=== PATIENT | female | born 1950 | race Two or more races ===

== ENCOUNTER → 2017-03-17 | Outpatient (CLI) | payer MEDICARE ==
--- NOTE | 2017-03-17 15:29 | XR ---
EXAMINATION TYPE: XR chest 2V DATE OF EXAM: 03/17/2017 COMPARISON: 05/26/2011 HISTORY: 66-year-old female cough and congestion TECHNIQUE: Frontal and lateral views FINDINGS: The cardiomediastinal silhouette, aorta, and pulmonary vasculature are within normal limits. Mild int erstitial prominence of the chronic appearance. No consolidation or pleural effusion. IMPRESSION: Chronic appearing changes without acute cardiopulmonary process.
== END | disposition home or self-care (01) ==
LOC: RADXRYALE 14:21
PROVIDERS: ATTEND Internal Medicine
DX: R05 Cough (principal); E11.9 Type 2 diabetes mellitus without complications
CPT/HCPCS: 71046

== ENCOUNTER 2017-06-09 23:08 | Observation (INO) | payer MEDICARE, OTHER ==
--- NOTE | 2017-06-09 23:22 | ED ---
General Adult HPI - General Chief complaint: Chest Pain Stated complaint: chest pain,dizziness Time Seen by Provider: 06/09/17 23:16 Source: patient, RN notes reviewed, old records reviewed Mode of arrival: wheelchair Limitations: language barrier, physical limitation - History of Present Illness Initial comments: This is a 66-year-old female to the ER for evaluation. Patient poor strain history obtained from family. Patient has chest pain, patient has history of diabetes of Hycotuss show. No prior history of chest pain no fevers or cough or congestion no travel history. No modifying factors for symptoms - Related Data Home Medications Medication Instructions Recorded Confirmed Atorvastatin [Lipitor] 20 mg PO DAILY 09/28/14 06/10/17 Primidone [Mysoline] 50 mg PO Q8HR 09/28/14 06/10/17 Cetirizine HCl [Zyrtec] 10 mg PO DAILY 06/10/17 06/10/17 DULoxetine HCL [Cymbalta] 60 mg PO DAILY 06/10/17 06/10/17 Insulin Glargine,Hum.rec.anlog 25 units SQ DAILY 06/10/17 06/10/17 [Lantus Solostar] Insulin Glargine,Hum.rec.anlog 35 unit SQ HS 06/10/17 06/10/17 [Lantus Solostar] Latanoprost Ophth [Xalatan 0.005%] 1 drops BOTH EYES HS 06/10/17 06/10/17 Losartan/Hydrochlorothiazide 1 tab PO DAILY 06/10/17 06/10/17 [Losartan-Hctz 100-12.5 mg Tab] Omeprazole [PriLOSEC] 20 mg PO DAILY 06/10/17 06/10/17 Oxybutynin Chloride [Ditropan] 5 mg PO BID 06/10/17 06/10/17 Pioglitazone HCl [Actos] 30 mg PO DAILY 06/10/17 06/10/17 Allergies Allergy/AdvReac Type Severity Reaction Status Date / Time No Known Allergies Allergy Verified 06/10/17 03:15 Review of Systems ROS Statement: Those systems with pertinent positive or pertinent negative responses have been documented in the HPI. ROS Other: All systems not noted in ROS Statement are negative. Past Medical History Past Medical History: Diabetes Mellitus, GERD/Reflux, Hyperlipidemia History of Any Multi-Drug Resistant Organisms: None Reported Past Surgical History: Cholecystectomy, Tubal Ligation Additional Past Surgical History / Comment(s): perf bowel with colostomy, colostomy reversed Past Psychological History: Depression Smoking Status: Current every day smoker Past Alcohol Use History: None Reported Past Drug Use History: None Reported General Exam Limitations: language barrier Course Vital Signs 06/09/17 06/09/17 06/10/17 23:09 23:11 00:11 Temperature 98.3 F 98.4 F Pulse Rate 62 68 88 Respiratory 20 18 20 Rate Blood Pressure 189/77 166/77 184/84 O2 Sat by Pulse 99 99 98 Oximetry 06/10/17 01:00 Temperature Pulse Rate 88 Respiratory 20 Rate Blood Pressure 172/82 O2 Sat by Pulse 98 Oximetry EKG Findings - EKG Comments: EKG Findings:: EKG shows sinus bradycardia rate of 56, UT 140, QRS 72, QTc 434 Medical Decision Making - Medical Decision Making 58 female the ER for evaluation multiple pain, headache nausea vomiting chest pain abdominal pain. Complex medical history with poor history secondary to leg which barrier. Patient has multiple imaging done as well as lab tests are negative, will admit for chest pain observation secondary to history of high blood pressure high cholesterol - Lab Data Result diagrams: 06/09/17 23:38 06/10/17 00:00 Lab Results 06/09/17 06/09/17 06/09/17 Range/Units 23:23 23:38 23:38 WBC 8.5 (3.8-10.6) k/uL RBC 4.71 (3.80-5.40) m/uL Hgb 13.5 (11.4-16.0) gm/dL Hct 40.7 (34.0-46.0) % MCV 86.4 (80.0-100.0) fL MCH 28.6 (25.0-35.0) pg MCHC 33.0 (31.0-37.0) g/dL RDW 13.7 (11.5-15.5) % Plt Count 234 (150-450) k/uL Neutrophils % 65 % Lymphocytes % 26 % Monocytes % 5 % Eosinophils % 3 % Basophils % 0 % Neutrophils # 5.5 (1.3-7.7) k/uL Lymphocytes # 2.2 (1.0-4.8) k/uL Monocytes # 0.4 (0-1.0) k/uL Eosinophils # 0.2 (0-0.7) k/uL Basophils # 0.0 (0-0.2) k/uL PT (9.0-12.0) sec INR (<1.2) APTT (22.0-30.0) sec D-Dimer (<0.60) mg/L FEU Sodium (137-145) mmol/L Potassium (3.5-5.1) mmol/L Chloride (98-107) mmol/L Carbon Dioxide (22-30) mmol/L Anion Gap mmol/L BUN (7-17) mg/dL Creatinine (0.52-1.04) mg/dL Est GFR (CKD-EPI)AfAm (>60 ml/min/1.73 sqM) Est GFR (CKD-EPI)NonAf (>60 ml/min/1.73 sqM) Glucose (74-99) mg/dL POC Glucose (mg/dL) 98 (75-99) mg/dL POC Glu Hotel Attendant ID Maxime Joy Calcium (8.4-10.2) mg/dL Magnesium (1.6-2.3) mg/dL Total Bilirubin (0.2-1.3) mg/dL AST (14-36) U/L ALT (9-52) U/L Alkaline Phosphatase (38-126) U/L Total Creatine Kinase 152 H (30-135) U/L CK-MB (CK-2) 0.8 (0.0-2.4) ng/mL CK-MB (CK-2) Rel Index 0.5 Troponin I <0.012 (0.000-0.034) ng/mL Total Protein (6.3-8.2) g/dL Albumin (3.5-5.0) g/dL Lipase (23-300) U/L 06/09/17 06/10/17 Range/Units 23:38 00:00 WBC (3.8-10.6) k/uL RBC (3.80-5.40) m/uL Hgb (11.4-16.0) gm/dL Hct (34.0-46.0) % MCV (80.0-100.0) fL MCH (25.0-35.0) pg MCHC (31.0-37.0) g/dL RDW (11.5-15.5) % Plt Count (150-450) k/uL Neutrophils % % Lymphocytes % % Monocytes % % Eosinophils % % Basophils % % Neutrophils # (1.3-7.7) k/uL Lymphocytes # (1.0-4.8) k/uL Monocytes # (0-1.0) k/uL Eosinophils # (0-0.7) k/uL Basophils # (0-0.2) k/uL PT 9.8 (9.0-12.0) sec INR 1.0 (<1.2) APTT 23.0 (22.0-30.0) sec D-Dimer 0.79 H (<0.60) mg/L FEU Sodium 144 (137-145) mmol/L Potassium 3.6 (3.5-5.1) mmol/L Chloride 102 (98-107) mmol/L Carbon Dioxide 29 (22-30) mmol/L Anion Gap 13 mmol/L BUN 15 (7-17) mg/dL Creatinine 0.90 (0.52-1.04) mg/dL Est GFR (CKD-EPI)AfAm 76 (>60 ml/min/1.73 sqM) Est GFR (CKD-EPI)NonAf 66 (>60 ml/min/1.73 sqM) Glucose 86 (74-99) mg/dL POC Glucose (mg/dL) (75-99) mg/dL POC Glu Hotel Attendant ID Calcium 9.3 (8.4-10.2) mg/dL Magnesium 1.5 L (1.6-2.3) mg/dL Total Bilirubin 0.3 (0.2-1.3) mg/dL AST 16 (14-36) U/L ALT 19 (9-52) U/L Alkaline Phosphatase 109 (38-126) U/L Total Creatine Kinase (30-135) U/L CK-MB (CK-2) (0.0-2.4) ng/mL CK-MB (CK-2) Rel Index Troponin I (0.000-0.034) ng/mL Total Protein 6.5 (6.3-8.2) g/dL Albumin 3.9 (3.5-5.0) g/dL Lipase 51 (23-300) U/L - Radiology Data Radiology results: report reviewed (CT brain negative CT chest and pelvis negative for acute disease), image reviewed Disposition Clinical Impression: Chest pain Disposition: ADMITTED IP TO THIS HOSP Condition: Undetermined Is patient prescribed a controlled substance at d/c from ED?: No
[2017-06-09 23:26] LABS: Glucose,Whole Blood 98 mg/dL (75-99)
[2017-06-09] MEDS ORDERED: RX INFO: IV CONTRAST WAS GIVEN 1 EACH MISC MISCELLANE PRN (23:29)
[2017-06-09 23:48] LABS: Basophils % (A) 0 %; Eosinophils # (A) 0.2 k/uL (0-0.7); Eosinophils % (A) 3 %; HCT 40.7 % (34.0-46.0); HGB 13.5 gm/dL (11.4-16.0); Lymphocytes # (A) 2.2 k/uL (1.0-4.8); Lymphocytes % (A) 26 %; MCH 28.6 pg (25.0-35.0); MCV 86.4 fL (80.0-100.0); Mean Platelet Volume 7.7; Monocytes # (A) 0.4 k/uL (0-1.0); Monocytes % (A) 5 %; Neutrophils # (A) 5.5 k/uL (1.3-7.7); Neutrophils % (A) 65 %; Platelet Count 234 k/uL (150-450); RBC 4.71 m/uL (3.80-5.40); RDW 13.7 % (11.5-15.5); WBC 8.5 k/uL (3.8-10.6)
[2017-06-09 23:54] LABS: Albumin 3.9 g/dL (3.5-5.0); Calcium 9.3 mg/dL (8.4-10.2); Magnesium 1.5 mg/dL (1.6-2.3); Potassium 3.6 mmol/L (3.5-5.1); Total Bilirubin 0.3 mg/dL (0.2-1.3); Total Protein 6.5 g/dL (6.3-8.2)
[2017-06-10 00:02] LABS: Prothrombin Time 9.8 sec (9.0-12.0)
[2017-06-10 00:10] LABS: Creatine Kinase 152 U/L (30-135)
[2017-06-10] MEDS ORDERED: MORPHINE SULFATE 4 MG/0.8 ML SYRINGE (INJ) IVP STA (00:18)
[2017-06-10] MEDS ORDERED: ONDANSETRON 4 MG/2 ML VIAL IVP STA (00:18)
[2017-06-10] MEDS ORDERED: PANTOPRAZOLE 40 MG/10 ML VIAL IVP STA (00:18)
[2017-06-10] MEDS ORDERED: MAGNESIUM SULFATE-D5W PMX 1 GM in DEXTROSE/WATER 1 100ML.BAG IVPB ONE (00:19)
[2017-06-10] MEDS ORDERED: MAGNESIUM OXIDE 400 MG TAB PO STA (00:19)
[2017-06-10 00:22] LABS: Creatine Kinase MB 0.8 ng/mL (0.0-2.4); Troponin I <0.012 ng/mL (0.000-0.034)
[2017-06-10 00:31] LABS: D-Dimer 0.79 mg/L FEU (<0.60)
--- NOTE | 2017-06-10 00:41 | CT ---
EXAMINATION TYPE: CT brain wo con DATE OF EXAM: 06/10/2017 COMPARISON: NONE HISTORY: No prior, language barrier, HANNON for 1 week, disoriented and unsteady gait per family, hidstor y of mini strokes and hypertension CT DLP: 981.70 mGycm Automated exposure control for dose reduction was used. FINDINGS: Ventricles and sulci appear normal for age.. There is no mass effect nor midline shift. There is no s ign of intracranial hemorrhage. There is some mucosal thickening in the paranasal sinuses. The calvar ium is intact. IMPRESSION: THERE IS MILD ATROPHY APPROPRIATE FOR AGE. NO ACUTE INTRACRANIAL ABNORMALITY. PANSINUSITIS.
[2017-06-10] MEDS ORDERED: MORPHINE SULFATE 4 MG/0.8 ML SYRINGE (INJ) IV PRN (00:43)
[2017-06-10] MEDS ORDERED: ASPIRIN 81 MG PO STA (00:43)
[2017-06-10] MEDS ORDERED: NITROGLYCERIN SL TABS 0.4 MG TAB SUBLINGUAL PRN (00:43)
--- NOTE | 2017-06-10 00:57 | CT ---
EXAMINATION TYPE: CT abdomen pelvis w con DATE OF EXAM: 06/10/2017 COMPARISON: 05/28/2011 HISTORY: Prior on Electro-LuminX, language barrier, wincing during exam, history of cholecystectomy CT DLP: 2362.80 mGycm Automated exposure control for dose reduction was used. TECHNIQUE: Helical acquisition of images was performed from the lung bases through the pelvis. CONTRAST: Performed without Oral Contrast and with IV Contrast, patient injected with 100 mL of Isovue 370. FINDINGS: The lung bases are clear of consolidation. There is no pleural effusion. There is no pericardial effu christa. Heart appears enlarged. Liver spleen pancreas appear normal. Gallbladder is absent. Bile ducts are not dilated. There is no adrenal mass. Kidneys show satisfactory contrast opacification. There is no hydronephrosi s. Ureters are not dilated. There is no retroperitoneal adenopathy. There is no ascites. Bladder dist ends smoothly. Uterus is anteverted. Lumbar spine is intact. There are surgical clips in the rectosig moid junction. There are also surgical clips in the anterior pelvis related to intestinal surgery. Appendix appears normal. I see no intestinal wall thickening. There is a ventral hernia that contains omental fat in the left mid abdomen. There is some atrophy of the anterior abdominal wall muscles. IMPRESSION: PREVIOUS COLORECTAL SURGERY. VENTRAL HERNIA CONTAINS OMENTAL FAT ON THE LEFT SIDE AND IS APPARENTLY P REVIOUS SITE OF COLOSTOMY. NO SIGN OF ACUTE ABDOMEN AND PELVIS. NO ADVERSE CHANGE COMPARED TO OLD EXA M.
--- NOTE | 2017-06-10 01:01 | CT ---
EXAMINATION TYPE: CT angio chest DATE OF EXAM: 06/10/2017 12:43 AM COMPARISON: NONE HISTORY: No prior, language barrier, HANNON for 1 week, disoriented and unsteady gait, dizziness, and hyp ertension, R/O PE CT DLP: 2362.80 mGycm Automated exposure control for dose reduction was used. CONTRAST: CTA scan of the thorax is performed with IV Contrast, patient injected with 100 mL of Isovue 370, pul monary embolism protocol. . FINDINGS: There are 3-D post processed images. The lungs are clear of consolidation. There is no pleural effusion. There is no pericardial effusion. Heart appears enlarged. I see no filling defects in the pulmonary arteries. There are no hilar yakelin s. There is a 2 cm anterior mediastinal lymph node. There are smaller right paratracheal lymph nodes. There is spurring in the thoracic spine. I see no bony destructive process. There is mild pleural thickening at both lung apices. There is no evidence of a pulmonary mass... IMPRESSION: NO EVIDENCE OF PULMONARY EMBOLISM. MILD MEDIASTINAL ADENOPATHY OF UNCERTAIN SIGNIFICANCE. MINIMAL AP ICAL PLEURAL THICKENING..
[2017-06-10 06:16] LABS: Creatine Kinase 157 U/L (30-135)
[2017-06-10 06:29] LABS: Creatine Kinase MB 0.7 ng/mL (0.0-2.4); Troponin I <0.012 ng/mL (0.000-0.034)
[2017-06-10 07:19] LABS: Glucose,Whole Blood 70 mg/dL (75-99)
[2017-06-10] MEDS ORDERED: DOBUTamine DRIP for NUC MED 250 MG in DEXTROSE/WATER 1 250ML.BAG IV ONE (08:15)
[2017-06-10] MEDS ORDERED: ATORVASTATIN 80 MG TAB PO SCH (09:00)
[2017-06-10] MEDS ORDERED: MORPHINE ORAL SOLN 10 MG/5 ML CUP PO PRN (10:13)
--- NOTE | 2017-06-10 10:54 | ECHOS ---
STRESS ECHOCARDIOGRAM DATE OF SERVICE: 06/10/2017 This is a dobutamine stress echo. INDICATIONS: Chest pain. MEDICATIONS: BASELINE HEART RATE: 56 BASELINE BLOOD PRESSURE: 143/75 MAXIMUM HEART RATE: 138 MAXIMUM BLOOD PRESSURE: 169/51 85% MPHR: 129 100% MPHR: 152 METS: MAXIMUM STAGE REACHED: TOTAL EXERCISE TIME: CLINICAL INFORMATION: Baseline EKG shows sinus rhythm, normal axis, normal intervals. The patient was given intravenous dobutamine over a period of 5-1/2 minutes, achieving 90% of predicted maximal heart rate without chest pain or diagnostic ST-segment depression. Baseline echo shows normal left ventricular size, wall motion and systolic function. Post dobutamine infusion, there is normal hyperdynamic response of all segments of myocardium noted. CONCLUSION: Negative dobutamine echo. MMODL / IJN: [id number] /
--- NOTE | 2017-06-10 11:18 | CONS ---
CONSULTATION CHIEF COMPLAINT: Chest pain. Genet is a 66-year-old [place]-speaking lady who presented to the hospital primarily complaining of headache and dizziness and along the way complained of chest pain. I communicated with her through a granddaughter who was at bedside who translated the information back and forth. She has vague precordial chest pain that is sharp, mild intensity, reproducible, unrelated to exertion and associated with diaphoresis. Since being admitted, she is doing well and is free of symptoms. EKG does not reveal ischemic changes. Cardiac enzymes have been negative. Patient has coronary risk factors in the form of hypertension, diabetes, dyslipidemia. Given the multiple coronary risk factors and the unexplained chest discomfort, which is atypical, I advised her to undergo a dobutamine echo and if necessary, I will perform cardiac catheterization. PAST MEDICAL HISTORY: Significant for yju-ocfqzqv-whgryudge diabetes, hypertension, dyslipidemia. CURRENT MEDICATIONS: Include Actos, Ditropan, Prilosec, losartan, insulin, Cymbalta, Zyrtec and Lipitor. She is also on Mysoline. ALLERGIES: No known drug allergies. FAMILY HISTORY: Negative for premature coronary artery disease. SOCIAL HISTORY: Significant for smoking. There is no history of EtOH abuse or drug abuse. REVIEW OF SYSTEMS: HEENT is unremarkable. CARDIAC: As described above. RESPIRATORY: Negative. GI: Negative. GENITOURINARY: Negative. ALLERGY/IMMUNOLOGY: Negative. SKIN: Negative. MUSCULOSKELETAL: Significant for arthritis. PSYCHOSOCIAL: Negative. ENDOCRINE: Negative. DERM: Negative. ONCOLOGICAL: Negative. Rest of the system review is not relevant. PHYSICAL EXAM: Comfortable at rest. Vital signs are stable. There is no jugular venous distention. Carotid upstroke is normal. There is no bruit. Chest exam reveals good air entry bilaterally. Heart exam reveals first and second heart sounds. No gallop. No murmur. No rub. Abdomen is soft, nontender. Exam of extremities did not reveal edema. Peripheral pulses are felt. FRAUD INVESTIGATOR exam did not reveal focal neurological deficits. EKG does not reveal ischemic changes. Troponins are normal. D-dimer is elevated. CT scan of the chest is negative for pulmonary embolism. ASSESSMENT: 1. Precordial chest pain, atypical, probably noncardiac in origin. 2. Hypertension. 3. Diabetes. 4. Dyslipidemia. PLAN: Will obtain a stress test on her. If this is abnormal, I will consider further workup. If not, she can be discharged home and continue with risk factor modification and medical therapy. MMODL / IJN: [id number] /
--- NOTE | 2017-06-10 11:21 | ECHOF ---
Referral Reason:cp MEASUREMENTS -------- HEIGHT: 154.9 cm WEIGHT: 86.2 kg BP: 141/63 RVIDd: 2.0 cm (< 3.3) IVSd: 1.2 cm (0.6 - 1.1) LVIDd: 4.2 cm (3.9 - 5.3) LVPWd: 1.2 cm (0.6 - 1.1) IVSs: 1.3 cm LVIDs: 3.2 cm LVPWs: 1.5 cm LA Diam: 3.1 cm (2.7 - 3.8) Ao Diam: 2.8 cm (2.0 - 3.7) AV Cusp: 1.9 cm (1.5 - 2.6) MV EXCURSION: 14.100 mm (> 18.000) MV EF SLOPE: 33 mm/s (70 - 150) EPSS: 0.8 cm MV E Armani: 0.78 m/s MV DecT: 285 ms MV A Armani: 0.86 m/s MV E/A Ratio: 0.91 FINDINGS -------- Sinus rhythm. This was a technically good study. The left ventricular size is normal. Left ventricular wall thickness is normal. Overall left vent ricular systolic function is normal with, an EF between 55 - 60 %. The right ventricle is normal in size. Normal LA size by volume 22+/-6 ml/m2. The right atrium is normal in size. The aortic valve is trileaflet and appears structurally normal. The mitral valve is normal. The tricuspid valve appears structurally normal. There is no pulmonic regurgitation present. The aortic root size is normal. IVC Not well visulized. There is no pericardial effusion. CONCLUSIONS -------- 1. Sinus rhythm. 2. This was a technically good study. 3. The left ventricular size is normal. 4. Left ventricular wall thickness is normal. 5. Overall left ventricular systolic function is normal with, an EF between 55 - 60 %. 6. The right ventricle is normal in size. 7. Normal LA size by volume 22+/-6 ml/m2. 8. The right atrium is normal in size. 9. The aortic valve is trileaflet and appears structurally normal. 10. The mitral valve is normal. 11. The tricuspid valve appears structurally normal. 12. There is no pulmonic regurgitation present. 13. The aortic root size is normal. 14. IVC Not well visulized. 15. There is no pericardial effusion. WIRING TECHNICIAN: Macey Anna RDCS
[2017-06-10] MEDS: ACETAMINOPHEN TAB 325 MG TAB PO PRN (11:22)
[2017-06-10 12:24] LABS: Glucose,Whole Blood 125 mg/dL (75-99)
[2017-06-10] MEDS: METOPROLOL TARTRATE 25 MG TAB PO SCH ×3 (12:26→22:09)
[2017-06-10] MEDS: LOSARTAN 50 MG TAB PO SCH (12:30)
[2017-06-10] MEDS: PIOGLITAZONE 30 MG TAB PO SCH (12:30)
[2017-06-10] MEDS: OXYBUTYNIN CHLORIDE 5 MG TAB PO SCH ×2 (12:30→22:03)
[2017-06-10] MEDS: PANTOPRAZOLE 40 MG TABLET PO SCH (12:30)
[2017-06-10] MEDS: DULoxetine HCL 60 MG CAPSULE.DR PO SCH (12:31)
[2017-06-10] MEDS: LORATADINE 10 MG TAB PO SCH (12:31)
[2017-06-10] MEDS: HYDROCHLOROTHIAZIDE 12.5 MG CAP PO SCH (12:31)
[2017-06-10] MEDS: INSULIN DETEMIR 100 UNIT/ML 10 ML VIAL SQ SCH (12:31)
[2017-06-10 12:38] LABS: Creatine Kinase MB 0.6 ng/mL (0.0-2.4); Troponin I 0.026 ng/mL (0.000-0.034)
[2017-06-10 13:53] LABS: Hemoglobin A1C 6.3 % (4.0-6.0)
--- NOTE | 2017-06-10 15:43 | P.HPIM ---
History of Present Illness This is a pleasant 66 years old lady does not speak [place] [employer] taken from the patient with the help of senior physician of her daughter Barbara up on patient's request she has past medical history of DM, GERD, hyperlipidemia, Parkinson's tremors, depression, Patient presents with 1 week history of frontal headache, nonspecific inequality known radiation improvement and it was severity from 10-2/10, associated with blurred vision, and balance problem, however patient denies any specific weakness in her lips or abnormal sensation, no difficulty talking or swallowing Past Medical History Past Medical History: Diabetes Mellitus, GERD/Reflux, Hyperlipidemia Additional Past Medical History / Comment(s): parkinsons tremors History of Any Multi-Drug Resistant Organisms: None Reported Past Surgical History: Cholecystectomy, Tubal Ligation Additional Past Surgical History / Comment(s): perf bowel with colostomy, colostomy reversed Additional Past Anesthesia/Blood Transfusion Reaction / Comment(s): has a hard time waking up from surgery Past Psychological History: Depression Smoking Status: Current every day smoker Past Alcohol Use History: None Reported Past Drug Use History: None Reported Medications and Allergies Home Medications Medication Instructions Recorded Confirmed Type Atorvastatin [Lipitor] 20 mg PO DAILY 09/28/14 06/10/17 History Primidone [Mysoline] 50 mg PO Q8HR 09/28/14 06/10/17 History Cetirizine HCl [Zyrtec] 10 mg PO DAILY 06/10/17 06/10/17 History DULoxetine HCL [Cymbalta] 60 mg PO DAILY 06/10/17 06/10/17 History Insulin Glargine,Hum.rec.anlog 25 units SQ DAILY 06/10/17 06/10/17 History [Lantus Solostar] Insulin Glargine,Hum.rec.anlog 35 unit SQ HS 06/10/17 06/10/17 History [Lantus Solostar] Latanoprost Ophth [Xalatan 0.005%] 1 drops BOTH EYES HS 06/10/17 06/10/17 History Losartan/Hydrochlorothiazide 1 tab PO DAILY 06/10/17 06/10/17 History [Losartan-Hctz 100-12.5 mg Tab] Omeprazole [PriLOSEC] 20 mg PO DAILY 06/10/17 06/10/17 History Oxybutynin Chloride [Ditropan] 5 mg PO BID 06/10/17 06/10/17 History Pioglitazone HCl [Actos] 30 mg PO DAILY 06/10/17 06/10/17 History Allergies Allergy/AdvReac Type Severity Reaction Status Date / Time No Known Allergies Allergy Verified 06/10/17 03:15 Physical Exam Vitals: Vital Signs Temp Pulse Pulse Resp BP BP Pulse Ox 06/10/17 12:00 18 06/10/17 11:15 98.1 F 63 18 148/67 99 06/10/17 08:00 59 L 18 06/10/17 07:56 97.6 F 59 L 18 141/63 99 06/10/17 03:32 16 06/10/17 02:12 97.5 F L 52 L 16 169/69 100 06/10/17 01:00 88 20 172/82 98 06/10/17 00:11 98.4 F 88 20 184/84 98 06/09/17 23:11 68 18 166/77 99 06/09/17 23:09 98.3 F 62 20 189/77 99 Intake and Output 06/10/17 06/10/17 06/10/17 06:59 14:59 22:59 Intake Total 425 240 Balance 425 240 Intake: IV 425 0.9@75 425 Oral 240 Other: Voiding Method Toilet Toilet Weight 86.183 kg Constitutional: No acute distress, conversant, pleasant Eyes: Anicteric sclerae, moist conjunctiva, no lid-lag PERRLA ENMT: NC/AT Oropharynx clear, no erythema, exudates Neck: Supple, FROM, no masses, or JVD No carotid bruits No thyromegaly Lungs: Clear to auscultation Clear to percussion Normal respiratory effort, no accessory muscle use Cardiovascular: Heart regular in rate and rhythm, No murmurs, gallops, or rubs No peripheral edema Abdominal: Soft Nontender, no guarding, rebound or rigidity Abdomen moving with respiration Normoactive bowel sounds No hepatomegaly, No splenomegaly No palpable mass No abdominal wall hernia noted Skin: Normal temperature, tone, texture, turgor No induration No subcutaneous nodules No rash, lesions No ulcers Extremities: No digital cyanosis No clubbing Pedal pulses intact and symmetrical Radial pulses intact and symmetrical Normal gait and station No calf tenderness Psychiatric: Alert and oriented to person, place and time Appropriate affect Intact judgement Neuro: Muscles Strength 5/5 in all 4 extremities Sensation to light touch grossly present throughout Cranial nerves II-XII grossly intact No focal sensory deficits Results CBC & Chem 7: 06/09/17 23:38 06/10/17 00:00 Labs: Abnormal Lab Results - Last 24 Hours (Table) 06/09/17 06/09/17 06/10/17 Range/Units 23:38 23:38 00:00 D-Dimer 0.79 H (<0.60) mg/L FEU POC Glucose (mg/dL) (75-99) mg/dL Hemoglobin A1c (4.0-6.0) % Magnesium 1.5 L (1.6-2.3) mg/dL Total Creatine Kinase 152 H (30-135) U/L 06/10/17 06/10/17 06/10/17 Range/Units 05:33 05:33 07:13 D-Dimer (<0.60) mg/L FEU POC Glucose (mg/dL) 70 L (75-99) mg/dL Hemoglobin A1c 6.3 H (4.0-6.0) % Magnesium (1.6-2.3) mg/dL Total Creatine Kinase 157 H (30-135) U/L 06/10/17 Range/Units 12:21 D-Dimer (<0.60) mg/L FEU POC Glucose (mg/dL) 125 H (75-99) mg/dL Hemoglobin A1c (4.0-6.0) % Magnesium (1.6-2.3) mg/dL Total Creatine Kinase (30-135) U/L Thrombosis Risk Factor Assmnt - Choose All That Apply Any of the Below Risk Factors Present?: Yes Each Factor Represents 1 point: Hx of IBD, Obesity (BMI >25), Swollen legs ( current), Varicose veins Other Risk Factors: Yes Each Risk Factor Represents 2 Points: Age 61-74 years Other congenital or acquired thrombophilia - If yes, enter type in comment: No Thrombosis Risk Factor Assessment Total Risk Factor Score: 6 Thrombosis Risk Factor Assessment Level: High Risk Assessment and Plan Assessment: -Frontal headache associated with blurred vision and dizziness -Chest pain significantly improved Plan: Patient underwent stress CTPA and cardiac stress test which were both negative or PE and cardiac disease, patient has been evaluated by cardiology team, their input is appreciated, and they cleared patient for discharge from their perspective However patient is still complaining from headache, blurred patients and balance problem, however there is no specific weakness is appreciated in the examination, her CT of the head was negative, we will ask for neurology evaluation plus physical therapy
[2017-06-10 17:13] LABS: Glucose,Whole Blood 117 mg/dL (75-99)
[2017-06-10] MEDS ORDERED: ONDANSETRON 4 MG/2 ML VIAL IVP PRN (17:17)
[2017-06-10] MEDS ORDERED: ONDANSETRON 4 MG/2 ML VIAL ONE (17:23)
[2017-06-10] MEDS: PRIMIDONE 50 MG TAB PO SCH ×2 (17:30→23:54)
[2017-06-10] MEDS ORDERED: MECLIZINE 12.5 MG TAB PO PRN (18:02)
--- NOTE | 2017-06-10 18:04 | P.CNNES ---
History of Present Illness Consult date: 06/10/17 History of Present Illness: The patient is a 66-year-old woman who presents with headache and chest pain since Wednesday. Patient apparently complained to her daughter whom she lives with of some chest pain along the left side of her chest and also of a headache around the frontal head region. She came into the hospital with that complaint. She is on a resident of [place] and has been visiting her daughter for the last few months. She has a history of headaches off and on usually 2-3 a month. Recently her blood pressure is been elevated. Her dizziness she describes as a vertiginous sensation. Patient also gives a history of Parkinson 's disease and has been stable in that regard. She does give a history of sinus stroke problems in the past and ALLERGIES and she was taking medication for that optimally year ago and then discontinued. The patient is diabetic and has heart disease and hyperlipidemia Parkinson's disease. The patient does not speaking wish and her daughters interpreting. The patient denied any focal weakness or double vision. She has had some blurred vision. Review of Systems Constitutional: Reports as per HPI Cardiovascular: Denies chest pain, Denies shortness of breath Respiratory: Denies cough Neurological: Denies numbness, Denies weakness Psychiatric: Reports as per HPI Past Medical History Past Medical History: Diabetes Mellitus, GERD/Reflux, Hyperlipidemia Additional Past Medical History / Comment(s): parkinsons tremors History of Any Multi-Drug Resistant Organisms: None Reported Past Surgical History: Cholecystectomy, Tubal Ligation Additional Past Surgical History / Comment(s): perf bowel with colostomy, colostomy reversed Additional Past Anesthesia/Blood Transfusion Reaction / Comment(s): has a hard time waking up from surgery Past Psychological History: Depression Smoking Status: Current every day smoker Past Alcohol Use History: None Reported Past Drug Use History: None Reported Medications and Allergies Home Medications Medication Instructions Recorded Confirmed Type Atorvastatin [Lipitor] 20 mg PO DAILY 09/28/14 06/10/17 History Primidone [Mysoline] 50 mg PO Q8HR 09/28/14 06/10/17 History Cetirizine HCl [Zyrtec] 10 mg PO DAILY 06/10/17 06/10/17 History DULoxetine HCL [Cymbalta] 60 mg PO DAILY 06/10/17 06/10/17 History Insulin Glargine,Hum.rec.anlog 25 units SQ DAILY 06/10/17 06/10/17 History [Lantus Solostar] Insulin Glargine,Hum.rec.anlog 35 unit SQ HS 06/10/17 06/10/17 History [Lantus Solostar] Latanoprost Ophth [Xalatan 0.005%] 1 drops BOTH EYES HS 06/10/17 06/10/17 History Losartan/Hydrochlorothiazide 1 tab PO DAILY 06/10/17 06/10/17 History [Losartan-Hctz 100-12.5 mg Tab] Omeprazole [PriLOSEC] 20 mg PO DAILY 06/10/17 06/10/17 History Oxybutynin Chloride [Ditropan] 5 mg PO BID 06/10/17 06/10/17 History Pioglitazone HCl [Actos] 30 mg PO DAILY 06/10/17 06/10/17 History Allergies Allergy/AdvReac Type Severity Reaction Status Date / Time No Known Allergies Allergy Verified 06/10/17 03:15 Physical Examination - Vital Signs Vital Signs: Vital Signs Temp Pulse Pulse Resp BP BP Pulse Ox 06/10/17 16:00 97.5 F L 73 18 188/61 95 06/10/17 12:00 18 06/10/17 11:15 98.1 F 63 18 148/67 99 06/10/17 08:00 59 L 18 06/10/17 07:56 97.6 F 59 L 18 141/63 99 06/10/17 03:32 16 06/10/17 02:12 97.5 F L 52 L 16 169/69 100 06/10/17 01:00 88 20 172/82 98 06/10/17 00:11 98.4 F 88 20 184/84 98 06/09/17 23:11 68 18 166/77 99 06/09/17 23:09 98.3 F 62 20 189/77 99 Intake and Output 06/10/17 06/10/17 06/10/17 06:59 14:59 22:59 Intake Total 425 440 Balance 425 440 Intake: IV 425 0.9@75 425 Oral 240 Other 200 Other: Voiding Method Toilet Toilet # Emeses 1 Weight 86.183 kg - Constitutional General appearance: average body habitus - EENT EENT: PERRL, vision intact - Respiratory Respiratory: lungs clear - Cardiovascular Cardiovascular: regular rate, normal S1 - Integumentary Integumentary: normal - Neurologic Neurologic examination mental status the patient is awake and alert and oriented. She speaks Kosovan. Her daughter is interpreting. Cranial nerves II through XII are grossly intact next Motor examination revealed no focal weakness Coordination finger to nose was intact next Sensory examination intact to light touch Deep tendon reflexes were 1 and symmetric X Gait was not tested Results - Laboratory Findings CBC and BMP: 06/09/17 23:38 06/10/17 00:00 Abnormal Lab Findings: Abnormal Labs 06/09/17 06/09/17 06/10/17 23:38 23:38 00:00 D-Dimer 0.79 H POC Glucose (mg/dL) Hemoglobin A1c Magnesium 1.5 L Total Creatine Kinase 152 H 06/10/17 06/10/17 06/10/17 05:33 05:33 07:13 D-Dimer POC Glucose (mg/dL) 70 L Hemoglobin A1c 6.3 H Magnesium Total Creatine Kinase 157 H 06/10/17 06/10/17 12:21 17:08 D-Dimer POC Glucose (mg/dL) 125 H 117 H Hemoglobin A1c Magnesium Total Creatine Kinase Assessment and Plan (1) Frontal headache Current Visit: Yes Status: Acute SNOMED Code(s): 159894630 (2) Pansinusitis Current Visit: Yes Status: Acute SNOMED Code(s): 712224042 (3) Vertigo Current Visit: Yes Status: Acute SNOMED Code(s): 881179653 (4) Chest pain Current Visit: Yes Status: Acute SNOMED Code(s): 87905928 Plan: The patient is a 66-year-old woman who presents with headache in the frontal head region. She had a CAT scan of the brain which showed pansinusitis. She does have hypertension which has been poorly controlled recently. Her headache is likely secondary to her sinusitis. CT of the brain was otherwise unremarkable except for mild atrophy. She has no focal neurologic deficits on examination. Her vertigo may be related to the underlying inflammation she is having with her sinusitis. Recommend meclizine 12.5 mg twice a day a day. Also we'll check carotid ultrasound. If dizziness does not improve recommend ENT evaluation.
--- NOTE | 2017-06-10 19:47 | US ---
EXAMINATION TYPE: US carotid duplex BILAT DATE OF EXAM: 06/10/2017 COMPARISON: NONE CLINICAL HISTORY: Vertigo. Vertigo EXAM MEASUREMENTS: RIGHT: Peak Systolic Velocity (PSV) cm/sec ----- Right CCA: 42.0 ----- Right ICA: 63.8 ----- Right ECA: 84.2 ICA/CCA ratio: 1.5 RIGHT: End Diastole cm/sec ----- Right CCA: 7.1 ----- Right ICA: 14.4 ----- Right ECA: 8.6 LEFT: Peak Systolic Velocity (PSV) cm/sec ----- Left CCA: 55.4 ----- Left ICA: 75.2 ----- Left ECA: 70.0 ICA/CCA ratio: 1.4 LEFT: End Diastole cm/sec ----- Left CCA: 13.1 ----- Left ICA: 15.7 ----- Left ECA: 7.8 VERTEBRALS (direction of flow): Right Vertebral: Antegrade Left Vertebral: Antegrade Rhythm: Normal Bilateral vessels dive deep. No significant stenosis seen IMPRESSION: There is antegrade flow in the vertebral arteries. The images and measurements suggest l ess than 25% stenosis in both internal carotid arteries. Criteria for Assigning % of Stenosis / Diameter reduction (Estimation based on the indirect measurements of the internal carotid artery velocities (ICA PSV). 1. Normal (no stenosis)=ICA PSV < 125 cm/s: ratio < 2.0: ICA EDV<40 cm/s. 2. Less than 50% stenosis=ICA PSV < 125 cm/s: ratio < 2.0: ICA EDV<40 cm/s. 3. 50 to 69% stenosis=ICA PSV of 125 to 230 cm/s: ration 2.0 ? 4.0: ICA EDV 40-100 cm/s. 4. Greater than 70% stenosis to near occlusion= ICA PSV > 230 cm/s: ratio > 4.0: ICA EDV > 100 cm/s. 5. Near occlusion= ICA PSV velocities may be low or undetectable: variable ratio and ICA EDV. 6. Total occlusion=unable to detect flow.
[2017-06-10 20:57] LABS: Glucose,Whole Blood 232 mg/dL (75-99)
[2017-06-10] MEDS ORDERED: INSULIN DETEMIR 100 UNIT/ML 10 ML VIAL SQ SCH (21:00)
[2017-06-10] MEDS ORDERED: LATANOPROST 0.005% OPHTH DROPS 2.5 ML BTL BOTH EYES SCH (21:00)
[2017-06-11 07:34] LABS: Basophils % (A) 0 %; Eosinophils # (A) 0.2 k/uL (0-0.7); Eosinophils % (A) 3 %; HCT 40.2 % (34.0-46.0); HGB 12.9 gm/dL (11.4-16.0); Lymphocytes # (A) 1.6 k/uL (1.0-4.8); Lymphocytes % (A) 21 %; MCH 28.1 pg (25.0-35.0); MCHC 32.1 g/dL (31.0-37.0); MCV 87.6 fL (80.0-100.0); Mean Platelet Volume 7.6; Monocytes # (A) 0.4 k/uL (0-1.0); Monocytes % (A) 5 %; Neutrophils # (A) 5.2 k/uL (1.3-7.7); Neutrophils % (A) 70 %; Platelet Count 234 k/uL (150-450); RBC 4.59 m/uL (3.80-5.40); RDW 13.7 % (11.5-15.5); WBC 7.4 k/uL (3.8-10.6)
[2017-06-11 07:51] LABS: Calcium 8.8 mg/dL (8.4-10.2); Magnesium 1.7 mg/dL (1.6-2.3); Potassium 4.2 mmol/L (3.5-5.1)
[2017-06-11 07:51] LABS: Glucose,Whole Blood 62 mg/dL (75-99)
[2017-06-11 07:51] LABS: Glucose,Whole Blood 75 mg/dL (75-99)
[2017-06-11 08:03] VITALS: RESP 18
[2017-06-11] MEDS: PANTOPRAZOLE 40 MG TABLET PO SCH (08:59)
[2017-06-11] MEDS: OXYBUTYNIN CHLORIDE 5 MG TAB PO SCH (08:59)
[2017-06-11] MEDS: PIOGLITAZONE 30 MG TAB PO SCH (08:59)
[2017-06-11] MEDS: LOSARTAN 50 MG TAB PO SCH (08:59)
[2017-06-11] MEDS: LORATADINE 10 MG TAB PO SCH (08:59)
[2017-06-11] MEDS: HYDROCHLOROTHIAZIDE 12.5 MG CAP PO SCH (08:59)
[2017-06-11] MEDS: DULoxetine HCL 60 MG CAPSULE.DR PO SCH (08:59)
[2017-06-11] MEDS: PRIMIDONE 50 MG TAB PO SCH ×2 (08:59→18:32)
[2017-06-11] MEDS ORDERED: ATORVASTATIN 20 MG TAB PO SCH (09:00)
[2017-06-11] MEDS ORDERED: ASPIRIN 81 MG PO SCH (09:00)
[2017-06-11] MEDS ORDERED: ASPIRIN 325 MG TAB PO SCH (09:00)
[2017-06-11] MEDS ORDERED: FLUTICASONE 50MCG/SPRAY NASAL 16GM EA NOSTRIL SCH (11:45)
[2017-06-11 12:18] LABS: Glucose,Whole Blood 121 mg/dL (75-99)
[2017-06-11] MEDS: INSULIN DETEMIR 100 UNIT/ML 10 ML VIAL SQ SCH (12:40)
[2017-06-11] MEDS: ACETAMINOPHEN TAB 325 MG TAB PO PRN (15:05)
[2017-06-11 17:37] LABS: Glucose,Whole Blood 159 mg/dL (75-99)
[2017-06-11 19:58] VITALS: BP 129/59; PULSE 62; TEMP 98.2
--- NOTE | 2017-06-11 23:24 | P.DS ---
Providers Date of admission: 06/10/17 00:43 Attending physician: Eitan Walls Consults: 06/10/17 00:43 Consult Physician Urgent Consulting Provider: Valeria Urrutia Consult Reason/Comments: cp Do you want consulting provider notified?: Yes 06/10/17 15:50 Consult Physician Routine Consulting Provider: Loco Morelos Consult Reason/Comments: Dizziness, Blurred Vision Do you want consulting provider notified?: Yes Primary care physician: Yvrose Blount Patient is seen and examined at bedside Patient has no new complaints No chest pain/dyspnea, no change in urine or bowel habits, no fever Patient says her frontal headache is significantly improved and now she just feels like heaviness or pressure No other neurological complaints Patient has been evaluated by neurologist recommended CD which shows less than 25% obstruction in the carotid arteries, and mostly it is from the frontal sinusitis, and they recommended ENT Discussed with the patient she does not want to wait until get ENT consult in- house and she preferred to be referred as an outpatient clinic Hospital Course: This is a pleasant 66 years old lady does not speak [place] information taken from the patient with the help of credit correspondence clerk of her daughter upon patient's request she has past medical history of DM, GERD, hyperlipidemia , Parkinson's tremors, depression Patient presents with 1 week history of frontal headache, and chest pain , pt has been evaluated by cardiology and neurology teams, patient had negative dobutamine echo on 06/10/2017 and she was cleared by cardiology team for discharge, her cp is resolved on the day of discharge Patient has been evaluated by neurologist recommended CD which shows less than 25% obstruction in the carotid arteries, and mostly it is from the frontal sinusitis, and they recommended ENT if no improvement , pt is informed with family and they agree Patient says her frontal headache is significantly improved after she was started on flonase, No other neurological complaints pt also CTPA of the thorax for elevated D-Dimer, which was negative for PE, there was some pleural thickening, mild. with [address], pt and family at bed side are informed , i recommended to hold dc till arrange for pulmonary referral , pt and family declined to wait for next day and stated they wanted to be discharged today , as she was planning to go to [place] next day for one week and comes back. I informed the pt and her family at bed side ( 2 daughters and one son in law) that i would not discharge pt if she is not going to see catering administrative assistant in the clinic and each member of the family as well as the pt herself confirmed to me she is going to follow my recommendation and see catering administrative assistant in 1-2 week, risks including but not limited to cancer are explained for the pt and family and they verbalized understanding and acceptance. referral information is provided for the pt for pulmonary and pcp and ENT and cardilogy and they agree with these recommendation, family looks reliable and involved seriously with the care of the pt since day one and they were providing support for the pt pt is counseled to quit smoking and she verbalized understanding and acceptance pt is stared on asa for prophylaxis , giving her risk factor of DM , HTN life styles, risks of bleeding are explained for the pt including the risk of brain bleed and organ dysfunction and and she agrees pt is found stable and can be discharged home but she needs f/u and she agrees (please see the full radiology reports for CT of abdomen/Pelvis, CT of the thorax , and CT of the brain from , echo and carotid doppler from 06/10/2017 ) Constitutional: No acute distress, conversant, pleasant Eyes: Anicteric sclerae, moist conjunctiva, no lid-lag PERRLA ENMT: NC/AT Oropharynx clear, no erythema, exudates Neck: Supple, FROM, no masses, or JVD No carotid bruits No thyromegaly Lungs: Clear to auscultation Clear to percussion Normal respiratory effort, no accessory muscle use Cardiovascular: Heart regular in rate and rhythm, No murmurs,gallops, or rubs No peripheral edema Abdominal: Soft Nontender, no guarding, rebound or rigidity Abdomen moving with respiration Normoactive bowel sounds No hepatomegaly, No splenomegaly No palpable mass No abdominal wall hernia noted Skin: Normal temperature, tone, texture, turgor No induration No subcutaneous nodules No rash, lesions No ulcers Extremities: No digital cyanosis No clubbing Pedal pulses intact and symmetrical Radial pulses intact and symmetrical Normal gait and station No calf tenderness Psychiatric: Alert and oriented to person, place and time Appropriate affect Intact judgement Neuro: Muscles Strength 5/5 in all 4 extremities Sensation to light touch grossly present throughout Cranial nerves II-XII grossly intact No focal sensory deficits Patient Condition at Discharge: Good Plan - Discharge Summary Discharge Rx Participant: No New Discharge Prescriptions: New Aspirin 81 mg PO DAILY #30 chew Fluticasone Nasal [place] [Flonase Nasal [place]] 2 spray EA NOSTRIL DAILY #1 spr Meclizine [Antivert] 12.5 mg PO BID PRN #60 tab PRN Reason: Vertigo Continue Primidone [Mysoline] 50 mg PO Q8HR Atorvastatin [Lipitor] 20 mg PO DAILY Omeprazole [PriLOSEC] 20 mg PO DAILY Latanoprost Ophth [Xalatan 0.005%] 1 drops BOTH EYES HS Oxybutynin Chloride [Ditropan] 5 mg PO BID Losartan/Hydrochlorothiazide [Losartan-Hctz 100-12.5 mg Tab] 1 tab PO DAILY Pioglitazone HCl [Actos] 30 mg PO DAILY Insulin Glargine,Hum.rec.anlog [Lantus Solostar] 35 unit SQ HS Insulin Glargine,Hum.rec.anlog [Lantus Solostar] 25 units SQ DAILY Cetirizine HCl [Zyrtec] 10 mg PO DAILY DULoxetine HCL [Cymbalta] 60 mg PO DAILY Discharge Medication List Atorvastatin [Lipitor] 20 mg PO DAILY 09/28/14 [History] Primidone [Mysoline] 50 mg PO Q8HR 09/28/14 [History] Cetirizine HCl [Zyrtec] 10 mg PO DAILY 06/10/17 [History] DULoxetine HCL [Cymbalta] 60 mg PO DAILY 06/10/17 [History] Insulin Glargine,Hum.rec.anlog [Lantus Solostar] 25 units SQ DAILY 06/10/17 [ History] Insulin Glargine,Hum.rec.anlog [Lantus Solostar] 35 unit SQ HS 06/10/17 [History ] Latanoprost Ophth [Xalatan 0.005%] 1 drops BOTH EYES HS 06/10/17 [History] Losartan/Hydrochlorothiazide [Losartan-Hctz 100-12.5 mg Tab] 1 tab PO DAILY [History] Omeprazole [PriLOSEC] 20 mg PO DAILY 06/10/17 [History] Oxybutynin Chloride [Ditropan] 5 mg PO BID 06/10/17 [History] Pioglitazone HCl [Actos] 30 mg PO DAILY 06/10/17 [History] Aspirin 81 mg PO DAILY #30 chew 06/11/17 [Rx] Fluticasone Nasal [place] [Flonase Nasal [place]] 2 spray EA NOSTRIL DAILY #1 spr [Rx] Meclizine [Antivert] 12.5 mg PO BID PRN #60 tab 06/11/17 [Rx] Follow up Appointment(s)/Referral(s): Cesia Lawrence MD [STAFF PHYSICIAN] - 2 Weeks (abnormal CT scan of your chest done on 06/09/2014 ( pleural thickening and large LN)) Carl Velazquez DO [Doctor of Osteopathic Medicine] - 2 Weeks (if you still feel dizzy , and/or sinusitis complaints ) Yvrose Blount MD [Primary Care Provider] - 1 Week (Appointment made for WednesdayJune 15 @ 12:15pm.) Fabio Piedra MD [STAFF PHYSICIAN] - 1 Week (Appointment made for July 06 at 4:30pm.) Patient Instructions/Handouts: Chest Pain (ED) Activity/Diet/Wound Care/Special Instructions: cardiac diet activity as tolerated Discharge Disposition: HOME SELF-CARE
== END 2017-06-11 20:00 | disposition home or self-care (01) ==
LOC: EC 23:08 → 3OBS 06-10 00:43
PROVIDERS: ADMIT Hospitalist; ATTEND Hospitalist
DX: R07.89 Other chest pain (principal); J32.4 Chronic pansinusitis; H53.8 Other visual disturbances; R61 Generalized hyperhidrosis; I10 Essential (primary) hypertension; R79.89 Other specified abnormal findings of blood chemistry; K21.9 Gastro-esophageal reflux disease without esophagitis; E78.5 Hyperlipidemia, unspecified; I65.23 Occlusion and stenosis of bilateral carotid arteries; G20 Parkinson's disease; E11.9 Type 2 diabetes mellitus without complications; F32.9 Major depressive disorder, single episode, unspecified; K58.9 Irritable bowel syndrome, unspecified; I83.90 Asymptomatic varicose veins of unspecified lower extremity; R91.8 Other nonspecific abnormal finding of lung field; F17.200 Nicotine dependence, unspecified, uncomplicated; E66.9 Obesity, unspecified; Z68.35 Body mass index [BMI] 35.0-35.9, adult; Z90.49 Acquired absence of other specified parts of digestive tract; Z79.4 Long term (current) use of insulin; Z79.899 Other long term (current) drug therapy
CPT/HCPCS: 96375 ×4; 96365 ×2; 99285 ×2; 93005 ×2; 96376; 36415 ×2; 93306; 93351; 97162; 85379; 80061; 80053; 80048; 82550; 82553; 83690; 83735 ×2; 84484; 85025 ×2; 85610; 85730; 83036; 93880; 70450; 71275; 74177; G0378 ×2; J2405; J3475; C9113; J1250; Q9967; J2270

== ENCOUNTER 2023-12-19 16:27 | Observation (INO) | payer MEDICARE, OTHER ==
--- NOTE | 2023-12-19 17:02 | ED ---
Chest Pain HPI - General Chief Complaint: Chest Pain Stated Complaint: Chest pain Time Seen by Provider: 12/19/23 16:32 Source: patient, EMS, RN notes reviewed, old records reviewed, Caregiver Mode of arrival: EMS Limitations: language barrier - History of Present Illness Initial Comments: This is a 73-year-old female to ER with chest pain difficult to control chest pain with nitro and pain medication prior to arrival by EMS. Patient has history of heart disease, left-sided chest pain chest pain to her back which is similar to prior heart event. Patient is having persistent chest pain here in the ER severe and is brought in by family who are very concerned for chest pain. Patient is under language barrier daughter provides history MD Complaint: chest pain -: hour(s) Pain Location: substernal, left chest Pain Radiation: back Severity: severe Severity scale (1-10): 8 Quality: sharp Consistency: constant Improves With: nothing Worsens With: nothing Anginal Symptoms: sense of impending doom Other Symptoms: palpitations Treatments Prior to Arrival: none - Related Data Home Medications Medication Instructions Recorded Confirmed Atorvastatin [Lipitor] 20 mg PO HS 09/28/14 12/19/23 DULoxetine HCL [Cymbalta] 60 mg PO DAILY 06/10/17 12/19/23 Latanoprost Ophth [Xalatan 0.005%] 1 drop BOTH EYES HS 06/10/17 12/19/23 Benzonatate [Tessalon Perle] 200 mg PO TID 12/19/23 12/19/23 Carbidopa-Levodopa ER 25-100Mg 1 tab PO HS 12/19/23 12/19/23 [Sinemet CR 25-100 mg] Ergocalciferol [Vitamin D2 (1250 1,250 mcg PO MO 12/19/23 12/19/23 Mcg = 96999 Iu)] Gabapentin [Neurontin] 100 mg PO BID 12/19/23 12/19/23 Insulin Degludec [Tresiba 50 units SQ HS 12/19/23 12/19/23 Flextouch U-200 Pen] Losartan [Cozaar] 25 mg PO DAILY 12/19/23 12/19/23 Pantoprazole [Protonix] 40 mg PO HS 12/19/23 12/19/23 Semaglutide [Ozempic] 0.25 mg SQ TH 12/19/23 12/19/23 Vibegron [Gemtesa] 75 mg PO DAILY 12/19/23 12/19/23 metFORMIN HCL [Glucophage] 500 mg PO BID 12/19/23 12/19/23 Previous Rx's Medication Instructions Recorded Dicyclomine [Bentyl] 10 mg PO QID PRN #30 capsule 12/21/23 Allergies Allergy/AdvReac Type Severity Reaction Status Date / Time No Known Allergies Allergy Verified 12/19/23 18:53 Review of Systems ROS Statement: Those systems with pertinent positive or pertinent negative responses have been documented in the HPI. ROS Other: All systems not noted in ROS Statement are negative. EKG Findings - EKG Comments: EKG Findings:: EKG sinus 67 NC 157 QRS 85 QTc 434 - EKG Results: EKG: interpreted by DEEPALI Past Medical History Past Medical History: Diabetes Mellitus, GERD/Reflux, Hyperlipidemia Additional Past Medical History / Comment(s): parkinsons tremors History of Any Multi-Drug Resistant Organisms: None Reported Past Surgical History: Cholecystectomy, Tubal Ligation Additional Past Surgical History / Comment(s): perf bowel with colostomy, colostomy reversed Additional Past Anesthesia/Blood Transfusion Reaction / Comment(s): has a hard time waking up from surgery Past Psychological History: Depression Past Alcohol Use History: None Reported Past Drug Use History: None Reported General Exam Limitations: language barrier General appearance: alert, in no apparent distress Head exam: Present: atraumatic, normocephalic, normal inspection Eye exam: Present: normal appearance, PERRL, EOMI. Absent: scleral icterus, conjunctival injection, periorbital swelling ENT exam: Present: normal exam, mucous membranes moist Neck exam: Present: normal inspection. Absent: tenderness, meningismus, lymp hadenopathy Respiratory exam: Present: normal lung sounds bilaterally. Absent: respiratory distress, wheezes, rales, rhonchi, stridor Cardiovascular Exam: Present: regular rate, normal rhythm, normal heart sounds. Absent: systolic murmur, diastolic murmur, rubs, gallop, clicks GI/Abdominal exam: Present: soft, normal bowel sounds. Absent: distended, tenderness, guarding, rebound, rigid Extremities exam: Present: normal inspection, full ROM, normal capillary refill. Absent: tenderness, pedal edema, joint swelling, calf tenderness Back exam: Present: normal inspection Neurological exam: Present: alert, oriented X3, CN II-XII intact Psychiatric exam: Present: normal affect, normal mood Skin exam: Present: warm, dry, intact, normal color. Absent: rash Course Vital Signs 12/19/23 12/19/23 12/19/23 16:32 17:03 18:06 Temperature 98.7 F Pulse Rate 57 L 64 58 L Respiratory 19 16 17 Rate Blood Pressure 157/74 142/70 178/88 O2 Sat by Pulse 97 98 98 Oximetry 12/19/23 12/19/23 18:50 19:08 Temperature 98.7 F 98 F Pulse Rate 62 59 L Respiratory 18 14 Rate Blood Pressure 153/74 92/63 O2 Sat by Pulse 96 96 Oximetry - Reevaluation(s) Reevaluation #1: 12/19/23 17:02 Medical records reviewed Reevaluation #2: 12/19/23 18:14 Patient still with chest pain here in the ER Reevaluation #3: 12/19/23 18:14 Patient informed of results questions answered Reevaluation #4: Was pt. sent in by a medical professional or institution (, PA, WANT AD SUPERVISOR, urgent care, hospital, or half-way...) When possible be specific @ -no Did you speak to anyone other than the patient for history (EMS, parent, family, police, friend...)? What history was obtained from this source @ -no Did you review nursing and triage notes (agree or disagree)? Why? @ -agree Are old charts reviewed (outside hosp., previous admission, EMS record, old EKG, old radiological studies, urgent care reports/EKG's, half-way records)? Report findings @ -yes Differential Diagnosis (chest pain, altered mental status, abdominal pain women, abdominal pain men, vaginal bleeding, weakness, fever, dyspnea, syncope, headache, dizziness, GI bleed, back pain, seizure, CVA, palpatations, mental health, musculoskeletal)? @ -prior EKG interpreted by me (3pts min.). @ -yes X-rays interpreted by me (1pt min.). @ -yes negative for acute disease CT interpreted by me (1pt min.). @ -no U/S interpreted by me (1pt. min.). @ -no What testing was considered but not performed or refused? (CT, X-rays, U/S, labs)? Why? @ -none What meds were considered but not given or refused? Why? @ -none Did you discuss the management of the patient with other professionals (professionals i.e. , PA, WANT AD SUPERVISOR, lab, RT, psych nurse, clinical social work aide, relocation services specialist, teacher, combat systems officer, senior case manager)? Give summary @ -no Was smoking cessation discussed for >3mins.? @ -no Was critical care preformed (if so, how long)? @ -yes31 Were there social determinants of health that impacted care today? How? (Homelessness, low income, unemployed, alcoholism, drug addiction, transportation, low edu. Level, literacy, decrease access to med. care, [facility], rehab)? @ -none Was there de-escalation of care discussed even if they declined (Discuss DNR or withdrawal of care, Hospice)? DNR status @ -no What co-morbidities impacted this encounter? (DM, HTN, Smoking, COPD, CAD, Cancer, CVA, ARF, Chemo, Hep., AIDS, mental health diagnosis, sleep apnea, morbid obesity)? @ -none Was patient admitted / discharged? Hospital course, mention meds given and route, prescriptions, significant lab abnormalities, going to OR and other pertinent info. @ - 73 female to the ER for evaluation of severe chest pain chest pain persistent here in the ER with history of CAD, patient will admit for chest pain observation Admitted Undiagnosed new problem with uncertain prognosis? @ -no Drug Therapy requiring intensive monitoring for toxicity (Heparin, Nitro, Insulin, Cardizem)? @ -no Were any procedures done? @ -no Diagnosis/symptom? @ -Chest pain ACS Acute, or Chronic, or Acute on Chronic? @ -Acute Uncomplicated (without systemic symptoms) or Complicated (systemic symptoms)? @ -Complicated Side effects of treatment? @ -no Exacerbation, Progression, or Severe Exacerbation? @ -exacerbation Poses a threat to life or bodily function? How? (Chest pain, [place], [place], pneumonia, PE, COPD, DKA, ARF, appy, cholecystitis, CVA, Diverticulitis, Homicidal, Suicidal, threat to staff... and all critical care pts) @ -yes with chest pain Reevaluation #5: Differential Chest Pain: Stable Angina, Unstable Angina, STEMI, NSTEMI Aortic Dissection, Pneumothorax, Musculoskeletal, Esophageal Spasm GERD, Cholecystitis, Pancreatitis, Zoster, this is not meant to be an all-inclusive list. - Consultations Consultation #1: Spoke with EM who agrees to admit this patient Chest Pain MDM - MDM 73 female to the ER for evaluation of severe chest pain chest pain persistent here in the ER with history of CAD, patient will admit for chest pain observation Critical Care Time Critical Care Time: Yes Total Critical Care Time: 31 Disposition Clinical Impression: Chest pain Disposition: ADMITTED IP TO THIS HOSP Condition: Fair Is patient prescribed a controlled substance at d/c from ED?: No Time of Disposition: 18:00
[2023-12-19] MEDS ORDERED: MORPHINE SULFATE 4 MG/ML SYRINGE IVP PRN (17:04)
[2023-12-19] MEDS: MORPHINE SULFATE 4 MG/ML SYRINGE IVP STA (17:09)
[2023-12-19 17:16] LABS: Basophils % (A) 0 %; Eosinophils # (A) 0.2 k/uL (0-0.7); Eosinophils % (A) 2 %; HCT 41.7 % (34.0-46.0); HGB 13.7 gm/dL (11.4-16.0); Hypochromasia Slight; Lymphocytes # (A) 1.8 k/uL (1.0-4.8); Lymphocytes % (A) 20 %; MCHC 32.9 g/dL (31.0-37.0); MCV 88.2 fL (80.0-100.0); Mean Platelet Volume 8.2; Monocytes # (A) 0.4 k/uL (0-1.0); Monocytes % (A) 4 %; Neutrophils # (A) 6.5 k/uL (1.3-7.7); Neutrophils % (A) 73 %; Platelet Count 205 k/uL (150-450); RBC 4.72 m/uL (3.80-5.40); RDW 13.9 % (11.5-15.5)
[2023-12-19 17:28] LABS: ALT 7 U/L (4-34); African American GFR (CKD) 89 (>60 ml/min/1.73 sqM); Anion Gap 3 mmol/L; Blood Urea Nitrogen 14 mg/dL (7-17); Calcium 8.7 mg/dL (8.4-10.2); Carbon Dioxide 27 mmol/L (22-30); Chloride 108 mmol/L (98-107); Glucose 120 mg/dL (74-99); Lipase 89 U/L (23-300); Non-African American GFR(CKD) 77 (>60 ml/min/1.73 sqM); Sodium 138 mmol/L (137-145); Total Bilirubin 0.7 mg/dL (0.2-1.3)
[2023-12-19 17:32] LABS: INR 0.9 (<1.2); Partial Thromboplastin Time 24.1 sec (22.0-30.0); Prothrombin Time 9.9 sec (10.0-12.5)
[2023-12-19 17:35] LABS: AST 22 U/L (14-36); NT-Pro-B-Type Natriuretic Pept 158 pg/mL; Total Protein 6.7 g/dL (6.3-8.2)
[2023-12-19 17:36] LABS: Alkaline Phosphatase 99 U/L (38-126); Magnesium 1.5 mg/dL (1.6-2.3)
--- NOTE | 2023-12-19 18:02 | XR ---
EXAMINATION TYPE: XR chest 2V DATE OF EXAM: 12/19/2023 COMPARISON: 03/17/2017 INDICATION: Chest pain, history of [place] a TIA TECHNIQUE: Frontal and lateral views of the chest are obtained. FINDINGS: The heart size is normal. The pulmonary vasculature is normal. The lungs are clear. IMPRESSION: 1. No acute pulmonary process. [facility], Workstation: [facility], 12/19/2023 6:00 PM
[2023-12-19] MEDS ORDERED: ONDANSETRON 4 MG/2 ML VIAL IVP PRN (18:13)
[2023-12-19] MEDS ORDERED: NALOXONE 0.4 MG/ML 1 ML VIAL IV PRN (18:13)
[2023-12-19 20:21] LABS: Glucose,Whole Blood 70 mg/dL (70-110)
[2023-12-19] MEDS: LATANOPROST 0.005% OPHTH DROPS 2.5 ML BTL BOTH EYES SCH (21:05)
[2023-12-19] MEDS: SODIUM CHLORIDE 0.9% 1,000 ML IV SCH (21:05)
[2023-12-19] MEDS: BENZONATATE 100 MG CAP PO SCH (21:06)
[2023-12-19] MEDS: metFORMIN 500 MG TAB PO SCH (21:06)
[2023-12-19] MEDS: GABAPENTIN 100 MG CAP PO SCH (21:06)
[2023-12-19] MEDS: ATORVASTATIN 20 MG TAB PO SCH (21:06)
[2023-12-19] MEDS: CARBIDOPA-LEVODOPA ER 25-100MG 1 EACH TABLET.ER PO SCH (21:06)
[2023-12-19] MEDS: INSULIN DETEMIR (LEVEMIR) 100 UNIT/ML SYR SQ SCH (21:07)
[2023-12-20 06:15] LABS: Glucose,Whole Blood 100 mg/dL (70-110)
[2023-12-20] MEDS ORDERED: DOBUTamine DRIP for NUC MED 500 MG in DEXTROSE/WATER 1 250ML.BAG IV PRN (08:09)
[2023-12-20 08:21] LABS: Basophils # (A) 0.04 X 10*3/uL (0.00-0.10); Basophils % (A) 0.6 %; Eosinophils # (A) 0.25 X 10*3/uL (0.04-0.35); Eosinophils % (A) 3.7 %; HCT 40.6 % (37.2-46.3); HGB 12.9 g/dL (12.0-15.0); Lymphocytes # (A) 1.49 X 10*3/uL (0.90-5.00); MCH 28.2 pg (27.0-32.0); MCHC 31.8 g/dL (32.0-37.0); MCV 88.6 FL (80.0-97.0); Mean Platelet Volume 11.3 FL (9.5-12.2); Monocytes # (A) 0.35 X 10*3/uL (0.20-1.00); Monocytes % (A) 5.2 %; NRBC Per 100 WBC 0 X 10*3/uL (0.00-0.01); Neutrophils # (A) 4.63 X 10*3/uL (1.80-7.70); Neutrophils % (A) 68.2 %; Platelet Count 180 X 10*3/uL (140-440); RBC 4.58 X 10*6/uL (4.10-5.20); RDW 13.7 % (11.5-14.5); WBC 6.78 X 10*3/uL (4.50-10.00)
[2023-12-20 08:39] LABS: ALT <5 U/L (8-44); AST 13 U/L (13-35); Albumin 3.6 g/dL (3.8-4.9); Alkaline Phosphatase 119 U/L (41-126); BUN/Creat Ratio 13.88 Ratio (12.00-20.00); Blood Urea Nitrogen 11.1 mg/dL (9.0-27.0); Calcium 8.5 mg/dL (8.7-10.3); Carbon Dioxide 25.2 mmol/L (21.6-31.8); Chloride 108 mmol/L (96-109); Globulin 1.8 g/dL (1.6-3.3); Glucose 132 mg/dL (70-110); Magnesium 1.5 mg/dL (1.5-2.4); Phosphorus 3.7 mg/dL (2.4-5.1); Potassium 3.6 mmol/L (3.5-5.5); Sodium 144 mmol/L (135-145); Total Bilirubin 0.3 mg/dL (0.3-1.2); Total Protein 5.4 g/dL (6.2-8.2)
[2023-12-20] MEDS: DULoxetine HCL 60 MG CAPSULE.DR PO SCH (09:37)
[2023-12-20] MEDS: LOSARTAN 25 MG TAB PO SCH (09:37)
[2023-12-20] MEDS: ERGOCALCIFEROL 1,250 MCG (50,000 IU) CAPSULE PO SCH (09:37)
[2023-12-20] MEDS: PANTOPRAZOLE 40 MG/10 ML VIAL IV SCH (09:38)
[2023-12-20] MEDS: PATIENT'S OWN (Vibegron [Gemtesa] 75 MG Tablet) PO SCH (09:44)
[2023-12-20] MEDS: MAGNESIUM SULFATE-D5W PMX 1 GM in DEXTROSE/WATER 1 100ML.BAG IVPB SCH (09:46)
--- NOTE | 2023-12-20 10:14 | P.CRDCN ---
History of Present Illness History of present illness: HISTORY OF PRESENT ILLNESS: This is a 73-year-old female with a past medical history significant for CVA, myocardial infarction per daughter, hypertension, hyperlipidemia, diabetes, and nicotine dependence. Patient lives in [place] and is visiting [place] with family until the end of the month. We have been asked to see the patient in consultation for chest pain. Patient examined at the bedside. The patient does not speak any Icelandic. However the daughter is at the bedside and is interpreting. Apparently, the patient had an episode of chest discomfort yesterday in the middle of her chest. She denied any radiation of the pain. Denied any shortness of breath. At the time of examination, the patient does have chest pain with chest wall palpation. The daughter states that her mother had a few heart attacks in the past but denies having any previous stenting. She denies any recent cardiac workup in [place]. She does report that her mom is a current smoker. DIAGNOSTICS: - EKG reveals sinus mechanism with no signs of acute ischemia - Chest xray negative for acute process - Laboratory data: WBC 6.78. Hemoglobin 12.9. Platelet count 180. Sodium 144. Potassium 3.6. BUN 11. Creatinine 0.8. Troponin negative x 2. - Current home cardiac medications include losartan 25 mg daily, atorvastatin 20 mg at night - Most recent echocardiogram obtained in May 2017 revealing ejection fraction 55 to 60% -Patient underwent dobutamine stress test in May 2017 which was negative for ischemia REVIEW OF SYSTEMS: At the time of my exam: CONSTITUTIONAL: Denies fever or chills. HEENT: Denies blurred vision, vision changes, or eye pain. Denies hemoptysis CARDIOVASCULAR: Denies chest pain. Denies orthopnea. Denies PND. Denies palpitations RESPIRATORY: Denies shortness of breath. GASTROINTESTINAL: Denies abdominal pain. Denies nausea or vomiting. HEMATOLOGIC: Denies bleeding disorders. GENITOURINARY: Denies any blood in urine. SKIN: Denies pruitis. Denies rash. PHYSICAL EXAM: VITAL SIGNS: Reviewed. GENERAL: Well-developed in no acute distress. HEENT: Head is normocephalic. Pupils are equal, round. Sclerae anicteric. Mucous membranes of the mouth are moist. Neck supple. No JVD or thyromegaly LUNGS: Respirations even and unlabored. Lungs essentially clear to auscultation bilaterally. HEART: Regular rate and rhythm. S1 and S2 heard. ABDOMEN: Soft. Nondistended. Nontender. EXTREMITIES: Normal range of motion. No clubbing or cyanosis. Peripheral pulses intact. No lower extremity edema NEUROLOGIC: Awake and alert. Oriented x 3. ASSESSMENT: Chest pain Hypertension Hyperlipidemia Diabetes History of CVA History of myocardial infarction without stenting per daughter Nicotine dependence Obesity: BMI 30.8 PLAN: An acute coronary event has been ruled out Obtain 2D echo to assess cardiac structure and function Patient to undergo dobutamine stress echo today Resume home cardiac medications Smoking cessation recommended Further recommendations pending patient course Patient to follow-up postdischarge with her primary physician in [place] Nurse practitioner note has been reviewed by physician. Signing provider agrees with the documented findings, assessment, and plan of care documented by HEDDLE MACHINE OPERATOR as a scribe. Past Medical History Past Medical History: Diabetes Mellitus, GERD/Reflux, Hyperlipidemia Additional Past Medical History / Comment(s): parkinsons tremors History of Any Multi-Drug Resistant Organisms: None Reported Past Surgical History: Cholecystectomy, Tubal Ligation Additional Past Surgical History / Comment(s): perf bowel with colostomy, colostomy reversed Additional Past Anesthesia/Blood Transfusion Reaction / Comment(s): has a hard time waking up from surgery Past Psychological History: Depression Smoking Status: Current every day smoker Past Alcohol Use History: None Reported Past Drug Use History: None Reported Medications and Allergies Home Medications Medication Instructions Recorded Confirmed Type Atorvastatin [Lipitor] 20 mg PO HS 09/28/14 12/19/23 History DULoxetine HCL [Cymbalta] 60 mg PO DAILY 06/10/17 12/19/23 History Latanoprost Ophth [Xalatan 0.005%] 1 drop BOTH EYES HS 06/10/17 12/19/23 History Benzonatate [Tessalon Perle] 200 mg PO TID 12/19/23 12/19/23 History Carbidopa-Levodopa ER 25-100Mg 1 tab PO HS 12/19/23 12/19/23 History [Sinemet CR 25-100 mg] Ergocalciferol [Vitamin D2 (1250 1,250 mcg PO MO 12/19/23 12/19/23 History Mcg = 82971 Iu)] Gabapentin [Neurontin] 100 mg PO BID 12/19/23 12/19/23 History Insulin Degludec [Tresiba 50 units SQ HS 12/19/23 12/19/23 History Flextouch U-200 Pen] Losartan [Cozaar] 25 mg PO DAILY 12/19/23 12/19/23 History Pantoprazole [Protonix] 40 mg PO HS 12/19/23 12/19/23 History Semaglutide [Ozempic] 0.25 mg SQ TH 12/19/23 12/19/23 History Vibegron [Gemtesa] 75 mg PO DAILY 12/19/23 12/19/23 History metFORMIN HCL [Glucophage] 500 mg PO BID 12/19/23 12/19/23 History Allergies Allergy/AdvReac Type Severity Reaction Status Date / Time No Known Allergies Allergy Verified 12/19/23 18:53 Physical Exam Vitals: Vital Signs Temp Pulse Pulse Resp BP BP Pulse Ox 12/20/23 07:00 97.6 F 64 16 176/82 100 12/20/23 01:00 98.0 F 72 16 137/73 98 12/19/23 19:31 98.7 F 62 18 149/77 99 12/19/23 19:08 98 F 59 L 14 92/63 96 12/19/23 18:50 98.7 F 62 18 153/74 96 12/19/23 18:06 58 L 17 178/88 98 12/19/23 17:03 64 16 142/70 98 12/19/23 16:32 98.7 F 57 L 19 157/74 97 Intake and Output 12/19/23 12/20/23 12/20/23 22:59 06:59 14:59 Other: # Voids 1 # Bowel Movements 0 Weight 78.925 kg Results 12/20/23 03:54 12/20/23 03:54 Cardiac Enzymes 12/19/23 12/19/23 12/19/23 Range/Units 17:02 17:02 19:34 AST 22 (14-36) U/L Troponin I <0.012 <0.012 (0.000-0.034) ng/mL Coagulation 12/19/23 Range/Units 17:02 PT 9.9 L (10.0-12.5) sec APTT 24.1 (22.0-30.0) sec CBC 12/19/23 Range/Units 17:02 WBC 9.0 (3.8-10.6) k/uL RBC 4.72 (3.80-5.40) m/uL Hgb 13.7 (11.4-16.0) gm/dL Hct 41.7 (34.0-46.0) % Plt Count 205 (150-450) k/uL Comprehensive Metabolic Panel 12/19/23 Range/Units 17:02 Sodium 138 (137-145) mmol/L Potassium 4.0 (3.5-5.1) mmol/L Chloride 108 H (98-107) mmol/L Carbon Dioxide 27 (22-30) mmol/L BUN 14 (7-17) mg/dL Creatinine 0.76 (0.52-1.04) mg/dL Glucose 120 H (74-99) mg/dL Calcium 8.7 (8.4-10.2) mg/dL AST 22 (14-36) U/L ALT 7 (4-34) U/L Alkaline Phosphatase 99 (38-126) U/L Total Protein 6.7 (6.3-8.2) g/dL Albumin 4.0 (3.5-5.0) g/dL Current Medications Generic Name Dose Route Start Last Admin Trade Name Freq PRN Reason Stop Dose Admin Atorvastatin Calcium 20 mg 12/19/23 21:00 12/19/23 21:06 Atorvastatin 20 Mg Tab PO 20 mg HS TRISTAN Administration Benzonatate 200 mg 12/19/23 22:00 12/19/23 21:06 Benzonatate 100 Mg Cap PO 200 mg TID TRISTAN Administration Carbidopa/Levodopa 1 each 12/19/23 21:00 12/19/23 21:06 Carbidopa-Levodopa Er 25-100mg 1 Each Tablet.Er PO 1 each HS TRISTAN Administration Duloxetine HCl 60 mg 12/20/23 09:00 Duloxetine Hcl 60 Mg Capsule. PO DAILY TRISTAN Ergocalciferol 1,250 mcg 12/20/23 09:00 Ergocalciferol 1,250 Mcg (50,000 Iu) Capsule PO MO TRISTAN Gabapentin 100 mg 12/19/23 21:00 12/19/23 21:06 Gabapentin 100 Mg Cap PO 100 mg BID TRISTAN Administration Sodium Chloride 1,000 mls @ 75 mls/hr 12/19/23 18:15 12/19/23 21:05 Saline 0.9% IV 75 mls/hr .[id number] TRISTAN Administration Insulin Detemir 50 unit 12/19/23 21:00 12/19/23 21:07 Insulin Detemir (Levemir) 100 Unit/Ml Syr SQ Not Given HS TRISTAN Latanoprost 1 drops 12/19/23 21:00 12/19/23 21:05 Latanoprost 0.005% Ophth Drops 2.5 Ml Btl BOTH EYES 1 drops HS TRISTAN Administration Losartan Potassium 25 mg 12/20/23 09:00 Losartan 25 Mg Tab PO DAILY TRISTAN Metformin HCl 500 mg 12/19/23 21:00 12/19/23 21:06 Metformin 500 Mg Tab PO 500 mg BID TRISTAN Administration Morphine Sulfate 4 mg 12/19/23 17:04 Morphine Sulfate 4 Mg/Ml Syringe IVP Q4HR PRN Pain Naloxone HCl 0.2 mg 12/19/23 18:13 Naloxone 0.4 Mg/Ml 1 Ml Vial IV Q2M PRN Opioid Reversal Patient's Own ( 75 mg 12/20/23 09:00 Vibegron [Gemtesa] PO 75 Mg Tablet) DAILY TRISTAN Ondansetron HCl 4 mg 12/19/23 18:13 Ondansetron 4 Mg/2 Ml Vial IVP Q8HR PRN Nausea And Vomiting Pantoprazole Sodium 40 mg 12/20/23 09:00 Pantoprazole 40 Mg/10 Ml Vial IV DAILY [facility] Intake and Output 12/19/23 12/20/23 12/20/23 22:59 06:59 14:59 Other: # Voids 1 # Bowel Movements 0 Weight 78.925 kg 12/19/23 17:02 12/19/23 17:02
[2023-12-20 10:50] LABS: Glucose,Whole Blood 81 mg/dL (70-110)
[2023-12-20 12:56] LABS: Glucose,Whole Blood 77 mg/dL (70-110)
[2023-12-20 16:59] LABS: Glucose,Whole Blood 277 mg/dL (70-110)
[2023-12-20] MEDS ORDERED: DEXTROSE 50% SYRINGE 50 ML IVP PRN ×2 (17:07)
[2023-12-20] MEDS: INSULIN ASPART (NovoLOG) 100 UNIT/ML VIAL SQ SCH (17:49)
[2023-12-20 20:04] LABS: Glucose,Whole Blood 228 mg/dL (70-110)
[2023-12-20] MEDS: ACETAMINOPHEN TAB 325 MG TAB PO PRN (21:51)
--- NOTE | 2023-12-20 21:51 | P.HPIM ---
History of Present Illness H&P Date: 12/20/23 Chief Complaint: Chest pain Patient is a 73-year-old female with a past medical history of CVA, hypertension, hyperlipidemia, diabetes type 2 insulin-dependent, Parkinson's tr emors, depression currently everyday smoker presents to ER with complaints of chest pain. Patient is Namibian-speaking and who lives in [place] and is visiting [place] with family until the end of the month. According to her daughter at bedside patient started having mid retrosternal chest discomfort started yesterday. Denied any radiation of the pain. No associated shortness of breath. Patient does have prior history of heart attack but denied any previous stenting. No fever no chills. Denied any recent illnesses. No recent cardiac workup. No cough or sputum production. EKG showed sinus rhythm. Chest x-ray showed no acute pulmonary process. Laboratory data showed WBC 9.0 hemoglobin 13.7 platelets 205 Sodium 138 potassium 4.0 chloride 108 bicarb is 27 BUN 14 and creatinine 0.76 and blood sugar 120 and magnesium 1.5 Troponin x 2 negative and proBNP 158 lipase 89. Review of Systems Complete review of systems could not be obtained from the patient due to language barrier. Past Medical History Past Medical History: Diabetes Mellitus, GERD/Reflux, Hyperlipidemia Additional Past Medical History / Comment(s): parkinsons tremors History of Any Multi-Drug Resistant Organisms: None Reported Past Surgical History: Cholecystectomy, Tubal Ligation Additional Past Surgical History / Comment(s): perf bowel with colostomy, colostomy reversed Additional Past Anesthesia/Blood Transfusion Reaction / Comment(s): has a hard time waking up from surgery Past Psychological History: Depression Smoking Status: Current every day smoker Past Alcohol Use History: None Reported Past Drug Use History: None Reported Medications and Allergies Home Medications Medication Instructions Recorded Confirmed Type Atorvastatin [Lipitor] 20 mg PO HS 09/28/14 12/19/23 History DULoxetine HCL [Cymbalta] 60 mg PO DAILY 06/10/17 12/19/23 History Latanoprost Ophth [Xalatan 0.005%] 1 drop BOTH EYES HS 06/10/17 12/19/23 History Benzonatate [Tessalon Perle] 200 mg PO TID 12/19/23 12/19/23 History Carbidopa-Levodopa ER 25-100Mg 1 tab PO HS 12/19/23 12/19/23 History [Sinemet CR 25-100 mg] Ergocalciferol [Vitamin D2 (1250 1,250 mcg PO MO 12/19/23 12/19/23 History Mcg = 49497 Iu)] Gabapentin [Neurontin] 100 mg PO BID 12/19/23 12/19/23 History Insulin Degludec [Tresiba 50 units SQ HS 12/19/23 12/19/23 History Flextouch U-200 Pen] Losartan [Cozaar] 25 mg PO DAILY 12/19/23 12/19/23 History Pantoprazole [Protonix] 40 mg PO HS 12/19/23 12/19/23 History Semaglutide [Ozempic] 0.25 mg SQ TH 12/19/23 12/19/23 History Vibegron [Gemtesa] 75 mg PO DAILY 12/19/23 12/19/23 History metFORMIN HCL [Glucophage] 500 mg PO BID 12/19/23 12/19/23 History Allergies Allergy/AdvReac Type Severity Reaction Status Date / Time No Known Allergies Allergy Verified 12/19/23 18:53 Physical Exam Vitals: Vital Signs Temp Pulse Pulse Resp BP BP Pulse Ox 12/20/23 07:00 97.6 F 64 16 176/82 100 12/20/23 01:00 98.0 F 72 16 137/73 98 12/19/23 19:31 98.7 F 62 18 149/77 99 12/19/23 19:08 98 F 59 L 14 92/63 96 12/19/23 18:50 98.7 F 62 18 153/74 96 12/19/23 18:06 58 L 17 178/88 98 12/19/23 17:03 64 16 142/70 98 12/19/23 16:32 98.7 F 57 L 19 157/74 97 Intake and Output 12/19/23 12/20/23 12/20/23 22:59 06:59 14:59 Other: # Voids 1 # Bowel Movements 0 Weight 78.925 kg PHYSICAL EXAMINATION: Patient is lying in the bed comfortably, no acute distress, awake alert and oriented. Namibian-speaking. HEENT: Normocephalic. Neck is supple. Pupils reactive. Nostrils clear. Oral cavity is moist. Neck reveals no JVD, carotid bruits, or thyromegaly. CHEST EXAMINATION: Trachea is central. Symmetrical expansion. Chest wall tenderness with deep palpation. Lung delcid clear to auscultation and percussion. CARDIAC: Normal S1, S2 with no gallops. No murmurs ABDOMEN: Soft. Bowel sounds normal. No organomegaly. No abdominal bruits. Extremities: reveal no edema. No clubbing or cyanosis Neurologically awake, alert, oriented x3 with well-coordinated movements. No focal deficits noted Skin: No rash or skin lesions. Psychiatric: Coperative. Nonsuicidal Musculoskeletal: No joint swelling or deformity. Normal range of motion. Results CBC & Chem 7: 12/20/23 03:54 12/20/23 03:54 Labs: Abnormal Lab Results - Last 24 Hours (Table) 12/19/23 12/19/23 12/20/23 Range/Units 17:02 17:02 03:54 MCHC 31.8 L (32.0-37.0) g/dL PT 9.9 L (10.0-12.5) sec Chloride 108 H (98-107) mmol/L Glucose 120 H (74-99) mg/dL Calcium (8.7-10.3) mg/dL Magnesium 1.5 L (1.6-2.3) mg/dL ALT (8-44) U/L Total Protein (6.2-8.2) g/dL Albumin (3.8-4.9) g/dL 12/20/23 Range/Units 03:54 MCHC (32.0-37.0) g/dL PT (10.0-12.5) sec Chloride (98-107) mmol/L Glucose 132 H (74-99) mg/dL Calcium 8.5 L (8.7-10.3) mg/dL Magnesium (1.6-2.3) mg/dL ALT <5 L (8-44) U/L Total Protein 5.4 L (6.2-8.2) g/dL Albumin 3.6 L (3.8-4.9) g/dL Thrombosis Risk Factor Assmnt - DVT/VTE Prophylaxis DVT/VTE Prophylaxis: Pharmacologic Prophylaxis ordered Assessment and Plan Assessment: Atypical chest pain ruled out ACS. Hypomagnesemia replaced. Hypertension Hyperlipidemia Diabetes type 2 insulin-dependent History of CVA History of mild with no prior history of stent placement Ongoing epigastrics Obesity with BMI 30.8 Parkinson's tremors DVT prophylaxis with heparin subcu Plan: Patient will be continued on telemonitoring. Serial EKG and troponin x 3 negative. proBNP is not elevated. Patient does have history of hypertension diabetes and ongoing nicotine addiction. Cardiology recommends stress echo cardiogram. Continue with statins and other home medications. Insulin sliding scale and insulin regimen for better blood sugar control. Continue to follow closely.. Time with Patient: Greater than 30
[2023-12-21] MEDS: HEPARIN SODIUM,PORCINE 5,000 UNIT/ML 1 ML VIAL SQ SCH (00:07)
[2023-12-21 03:01] VITALS: TEMP 97.6
[2023-12-21 06:01] LABS: Glucose,Whole Blood 115 mg/dL (70-110)
[2023-12-21] MEDS ORDERED: DOBUTamine DRIP for NUC MED 500 MG in DEXTROSE/WATER 1 250ML.BAG IV PRN (06:50)
[2023-12-21 07:27] VITALS: BP 146/79; PULSE 66; RESP 17
[2023-12-21] MEDS ORDERED: DOBUTamine DRIP for NUC MED 500 MG/250 ML BAG IV ONE (08:00)
--- NOTE | 2023-12-21 11:00 | P.PN ---
Subjective HISTORY OF PRESENT ILLNESS: This is a 73-year-old female with a past medical history significant for CVA, myocardial infarction per daughter, hypertension, hyperlipidemia, diabetes, and nicotine dependence. Patient lives in [place] and is visiting [place] with family until the end of the month. We have been asked to see the patient in consultation for chest pain. Patient examined at the bedside. The patient does not speak any Japanese. However the daughter is at the bedside and is interpreting. Apparently, the patient had an episode of chest discomfort yesterday in the middle of her chest. She denied any radiation of the pain. Denied any shortness of breath. At the time of examination, the patient does have chest pain with chest wall palpation. The daughter states that her mother had a few heart attacks in the past but denies having any previous stenting. She denies any recent cardiac workup in [place]. She does report that her mom is a current smoker. DIAGNOSTICS: - EKG reveals sinus mechanism with no signs of acute ischemia - Chest xray negative for acute process - Laboratory data: WBC 6.78. Hemoglobin 12.9. Platelet count 180. Sodium 144. Potassium 3.6. BUN 11. Creatinine 0.8. Troponin negative x 2. - Current home cardiac medications include losartan 25 mg daily, atorvastatin 20 mg at night - Most recent echocardiogram obtained in May 2017 revealing ejection fraction 55 to 60% -Patient underwent dobutamine stress test in May 2017 which was negative for ischemia Addendum entered and electronically signed by Diana Betts NP-C 12/20/23 12:21: Patient arrived down to stress lab Family was requested to stay with patient during stress test due to language barrier but according to the patients nurse the daughter left and nurse is unsure of where she went Costume Designer device was brought down to the stress lab. However it was not working. Per patient's nurse, device has not been able to connect to the hospitals Internet all day Additionally, the patient is now throwing up Dobutamine stress test canceled for today Patient will be reevaluated in the morning 12/21/2023 Patient examined this morning at the bedside. Patient currently denies chest pain or pressure. She denies shortness of breath. No further episodes of nausea or vomiting. 2D echo remains pending. PHYSICAL EXAM: VITAL SIGNS: Reviewed. GENERAL: Well-developed in no acute distress. HEENT: Head is normocephalic. Pupils are equal, round. Sclerae anicteric. Mucous membranes of the mouth are moist. Neck supple. No JVD or thyromegaly LUNGS: Respirations even and unlabored. Lungs essentially clear to auscultation bilaterally. HEART: Regular rate and rhythm. S1 and S2 heard. ABDOMEN: Soft. Nondistended. Nontender. EXTREMITIES: Normal range of motion. No clubbing or cyanosis. Peripheral pulses intact. No lower extremity edema NEUROLOGIC: Awake and alert. Oriented x 3. ASSESSMENT: Chest pain Hypertension Hyperlipidemia Diabetes History of CVA History of myocardial infarction without stenting per daughter Nicotine dependence Obesity: BMI 30.8 PLAN: An acute coronary event has been ruled out 2D echo remains pending. Await results. Patient to undergo dobutamine stress echo today Continue current cardiac medications Smoking cessation recommended Further recommendations pending patient course Patient to follow-up postdischarge with her primary physician in [place] Nurse practitioner note has been reviewed by physician. Signing provider agrees with the documented findings, assessment, and plan of care documented by CYLINDER DEVALVER as a scribe. Objective - Vital Signs Vital signs: Vital Signs Temp 97.6 F 12/21/23 07:00 Pulse 66 12/21/23 07:00 Resp 17 12/21/23 07:00 BP 146/79 12/21/23 07:00 Pulse Ox 98 12/21/23 07:00 FiO2 Intake & Output 12/20/23 12/21/23 12/21/23 18:59 06:59 18:59 Intake Total 236 Balance 236 Intake: Oral 236 Other: Voiding Method Toilet Toilet # Voids 2 1 - Labs CBC & Chem 7: 12/20/23 03:54 12/20/23 03:54 Labs: Abnormal Lab Results - Last 24 Hours (Table) 12/20/23 12/20/23 12/20/23 Range/Units 03:54 16:58 20:02 POC Glucose (mg/dL) 277 H 228 H (70-110) mg/dL Hemoglobin A1c 7.2 H (<=6.0) % 12/21/23 Range/Units 06:00 POC Glucose (mg/dL) 115 H (70-110) mg/dL Hemoglobin A1c (<=6.0) %
[2023-12-21 11:56] LABS: Glucose,Whole Blood 71 mg/dL (70-110)
--- NOTE | 2023-12-21 12:10 | CA ---
Transthoracic Echo Report Name: Genet Craig Age: 73 Gender: F : 1950 Exam Date: 12/21/2023 12:23 Exam Location: [facility] Ht (in): 63 Wt (lb): 174 Ordering Physician: Diana Betts Attending/Referring Phys: [id number], Roxane Warehouse Consultant Macey Anna RDCS Procedure CPT: Indications: LV function, CP Cardiac Hx: smoker Technical Quality: Fair Contrast 1: Total Dose (mL): Contrast 2: Total Dose (mL): MEASUREMENTS (Male / Female) Normal Values 2D ECHO LV Diastolic Diameter PLAX 4.1 cm 4.2 - 5.9 / 3.9 - 5.3 cm LV Systolic Diameter PLAX 2.8 cm IVS Diastolic Thickness 1.1 cm 0.6 - 1.0 / 0.6 - 0.9 cm LVPW Diastolic Thickness 1.1 cm 0.6 - 1.0 / 0.6 - 0.9 cm LV Relative Wall Thickness 0.5 RV Internal Dim ED PLAX 2.9 cm LA Systolic Diameter LX 3.5 cm 3.0 - 4.0 / 2.7 - 3.8 cm LV Diastolic Volume MOD 4C 107.7 cm??? LV Systolic Volume MOD 4C 66.5 cm??? LV Ejection Fraction MOD 4C 38.2 % LV Cardiac Index MOD 4C 2122.4 cm???/min???m??? LV Diastolic Length 4C 7.6 cm LV Systolic Length 4C 6.4 cm LV Diastolic Volume MOD 2C 85.9 cm??? LV Systolic Volume MOD 2C 51.7 cm??? LV Ejection Fraction MOD 2C 39.8 % LV Cardiac Index MOD 2C 1763.8 cm???/min???m??? LV Diastolic Length 2C 7.2 cm LV Systolic Length 2C 6.3 cm LA Volume 42.9 cm??? 18 - 58 / 22 - 52 cm??? LA Volume Index 22.6 cm???/m??? 16 - 28 cm???/m??? M-MODE Aortic Root Diameter MM 2.7 cm AV Cusp Separation MM 1.9 cm DOPPLER AV Peak Velocity 138.9 cm/s AV Peak Gradient 7.7 mmHg MV Area PHT 5.3 cm??? Mitral E Point Velocity 73.9 cm/s Mitral A Point Velocity 111.1 cm/s Mitral E to A Ratio 0.7 MV Deceleration Time 142.2 ms FINDINGS Left Ventricle Left ventricular ejection fraction is estimated at 40-45 %. Left ventricular cavity size normal. Mildly increased septal wall thickness. Mildly increased posterior wall thickness. Mildly reduced global left ventricular systolic function. Right Ventricle Normal right ventricular size and function. Unable to estimate the right ventricular systolic pressure. Right Atrium Normal right atrial size. No right atrial thrombus or mass seen. Left Atrium Normal left atrial size. No left atrial thrombus or mass present. Mitral Valve Structurally normal mitral valve. No mitral stenosis, regurgitation or prolapse. Aortic Valve Trileaflet aortic valve. No aortic valve stenosis or regurgitation. Tricuspid Valve Structurally normal tricuspid valve. No tricuspid stenosis, regurgitation or prolapse. Pulmonic Valve Structurally normal pulmonic valve. Trace pulmonic regurgitation. Pericardium No pericardial or pleural effusion. Aorta Normal size aortic root and proximal ascending aorta. CONCLUSIONS Mild LV systolic dysfunction with an ejection fraction of 45% Previewed by: Dr. Fabio Piedra MD (Electronically Signed) Final Date: 21 December 2023 12:09
--- NOTE | 2023-12-21 12:12 | CA ---
Dobutamine Stress Echocardiogram Report Genet Craig Age: 73 Gender: F : 1950 Exam Date: 12/21/2023 11:54 Exam Location: [facility] Ordering Physician: Diana Betts Referring Physician: [id number] Curtain Fitter: Macey Anna RDCS Technologist: Ht (in): 63 Wt (lb): 174 Procedure CPT: Indication: CP ICD-9 Codes: Rhythm: Patient History: CHEST PAIN, HTN, DIABETES, HYPERCHOLESTEROLEMIA, PRIOR OR, CURRENT SMOKER Cardiac Medications: Medications in past 24 hours: Contrast: N/A Total Dose (mL): Stress Results Protocol: Dobutamine Peak Dose (???g/kg/min): 30 Duration (min:sec): Atropine:(mg) Target HR: 123 Double Product: [id number] Resting HR: 66 Resting BP: 148 / 70 Peak HR: 122 Peak BP: 181 / 64 Max Predicted HR: 145 84 % Max Predicted HR Stress Summary: BP Response: Reason for Termination: Target HR Cardiac Symptoms: NO SYMPTOMS ECG Analysis Resting EKG: Normal sinus rhythm normal axis normal intervals Stress EKG: Patient was given intravenous dobutamine per protocol achieving 84% of predicted maximal heart rate without chest pain or diagnostic ST segment depression Arrhythmia: Echo Analysis Base Echo Analysis: Normal left ventricular size diffuse global hypokinesis with mild LV dysfunction with an ejection fraction of 45% Low Echo Anaylsis: Normal Peak Echo Analysis: Normal hyperdynamic response Recovery Echo: Normal MEASUREMENTS (Male/Female) Normal Values CONCLUSIONS Negative dobutamine stress echo Dr. Fabio Piedra MD (Electronically Signed) Final Date: 21 December 2023 12:11
[2023-12-21] MEDS ORDERED: DICYCLOMINE 20 MG TAB PO PRN (12:44)
--- NOTE | 2024-01-08 13:30 | P.DS ---
Providers Date of admission: 12/19/23 18:13 Expected date of discharge: 12/21/23 Attending physician: Eitan Walls Consults: 12/19/23 18:13 Consult Physician Routine Consulting Provider: Valeria Urrutia Consult Reason/Comments: cp Do you want consulting provider notified?: Yes Primary care physician: Physician Nonstaff Hospital Course: Discharge diagnosis Atypical chest pain ruled out ACS. Negative dobutamine stress echocardiogram. Hypomagnesemia replaced. Hypertension Hyperlipidemia Diabetes type 2 insulin-dependent History of CVA History of mild with no prior history of stent placement Ongoing epigastrics Obesity with BMI 30.8 Parkinson's tremors DVT prophylaxis with heparin subcu Hospital course Patient is a 73-year-old female with a past medical history of CVA, h ypertension, hyperlipidemia, diabetes type 2 insulin-dependent, Parkinson's tremors, depression currently everyday smoker presents to ER with complaints of chest pain. Patient is [place]ian-speaking and who lives in [place] and is visiting [place] with family until the end of the month. According to her daughter at bedside patient started having mid retrosternal chest discomfort started yesterday. Denied any radiation of the pain. No associated shortness of breath. Patient does have prior history of heart attack but denied any previous stenting. No fever no chills. Denied any recent illnesses. No recent cardiac workup. No cough or sputum production. EKG showed sinus rhythm. Chest x-ray showed no acute pulmonary process. Laboratory data showed WBC 9.0 hemoglobin 13.7 platelets 205 Sodium 138 potassium 4.0 chloride 108 bicarb is 27 BUN 14 and creatinine 0.76 and blood sugar 120 and magnesium 1.5 Troponin x 2 negative and proBNP 158 lipase 89. 12/21/2023 Patient is resting in bed. Awake alert and oriented x 3. No complaints of chest pain or shortness of breath. No nausea vomiting abdominal pain or diarrhea. Cardiology recommends 2D echocardiogram and dobutamine stress test. 2D echogram showed ejection fraction 45% and dobutamine stress echocardiogram showed negative dobutamine stress echo. Other laboratory data reviewed. Patient is cleared from cardiology standpoint and is being discharged home today. Follow-up with primary physician in [place] and cardiology as an outpatient. Smoking cessation has been counseled extensively. PHYSICAL EXAMINATION: Patient is lying in the bed comfortably, no acute distress, awake alert and oriented. Malian-speaking. HEENT: Normocephalic. Neck is supple. Pupils reactive. Nostrils clear. Oral cavity is moist. Neck reveals no JVD, carotid bruits, or thyromegaly. CHEST EXAMINATION: Trachea is central. Symmetrical expansion. Chest wall tenderness with deep palpation. Lung delcid clear to auscultation and percussion. CARDIAC: Normal S1, S2 with no gallops. No murmurs ABDOMEN: Soft. Bowel sounds normal. No organomegaly. No abdominal bruits. Extremities: reveal no edema. No clubbing or cyanosis Neurologically awake, alert, oriented x3 with well-coordinated movements. No focal deficits noted Skin: No rash or skin lesions. Psychiatric: Coperative. Nonsuicidal Musculoskeletal: No joint swelling or deformity. Normal range of motion. Vital signs: Vital Signs Temp 97.6 F 12/21/23 07:00 Pulse 66 12/21/23 07:00 Resp 17 12/21/23 07:00 BP 146/79 12/21/23 07:00 Pulse Ox 98 12/21/23 07:00 FiO2 Intake & Output 12/20/23 12/21/23 12/21/23 18:59 06:59 18:59 Intake Total 236 Balance 236 Intake: Oral 236 Other: Voiding Method Toilet Toilet # Voids 2 1 Patient Condition at Discharge: Fair Plan - Discharge Summary Discharge Rx Participant: No New Discharge Prescriptions: New Dicyclomine [Bentyl] 10 mg PO QID PRN #30 capsule PRN Reason: Spasms Continue Atorvastatin [Lipitor] 20 mg PO HS Latanoprost Ophth [Xalatan 0.005%] 1 drop BOTH EYES HS DULoxetine HCL [Cymbalta] 60 mg PO DAILY metFORMIN HCL [Glucophage] 500 mg PO BID Carbidopa-Levodopa ER 25-100Mg [Sinemet CR 25-100 mg] 1 tab PO HS Gabapentin [Neurontin] 100 mg PO BID Pantoprazole [Protonix] 40 mg PO HS Ergocalciferol [Vitamin D2 (1250 Mcg = 08756 Iu)] 1,250 mcg PO MO Vibegron [Gemtesa] 75 mg PO DAILY Losartan [Cozaar] 25 mg PO DAILY Insulin Degludec [Tresiba Flextouch U-200 Pen] 50 units SQ HS Semaglutide [Ozempic] 0.25 mg SQ TH Benzonatate [Tessalon Perle] 200 mg PO TID Discharge Medication List Atorvastatin [Lipitor] 20 mg PO HS 09/28/14 [History] DULoxetine HCL [Cymbalta] 60 mg PO DAILY 06/10/17 [History] Latanoprost Ophth [Xalatan 0.005%] 1 drop BOTH EYES HS 06/10/17 [History] Benzonatate [Tessalon Perle] 200 mg PO TID 12/19/23 [History] Carbidopa-Levodopa ER 25-100Mg [Sinemet CR 25-100 mg] 1 tab PO HS 12/19/23 [History] Ergocalciferol [Vitamin D2 (1250 Mcg = 71152 Iu)] 1,250 mcg PO MO 12/19/23 [History] Gabapentin [Neurontin] 100 mg PO BID 12/19/23 [History] Insulin Degludec [Tresiba Flextouch U-200 Pen] 50 units SQ HS 12/19/23 [History] Losartan [Cozaar] 25 mg PO DAILY 12/19/23 [History] Pantoprazole [Protonix] 40 mg PO HS 12/19/23 [History] Semaglutide [Ozempic] 0.25 mg SQ TH 12/19/23 [History] Vibegron [Gemtesa] 75 mg PO DAILY 12/19/23 [History] metFORMIN HCL [Glucophage] 500 mg PO BID 12/19/23 [History] Dicyclomine [Bentyl] 10 mg PO QID PRN #30 capsule 12/21/23 [Rx] Follow up Appointment(s)/Referral(s): Nonstaff,Physician [Primary Care Provider] - 1-2 days (patient is to follow up with primary under presser in [place] where she resides. She states she will follow up with cardiology.) Patient Instructions/Handouts: Chest Pain (DC) Discharge Disposition: HOME SELF-CARE
== END 2023-12-21 16:35 | disposition home or self-care (01) ==
LOC: EC 16:27 → 6NMEDSUR 18:13
PROVIDERS: ADMIT Hospitalist; ATTEND Hospitalist
DX: R07.89 Other chest pain (principal); R11.10 Vomiting, unspecified; E83.42 Hypomagnesemia; I24.9 Acute ischemic heart disease, unspecified; I11.9 Hypertensive heart disease without heart failure; E78.00 Pure hypercholesterolemia, unspecified; I25.10 Atherosclerotic heart disease of native coronary artery without angina pectoris; E11.9 Type 2 diabetes mellitus without complications; K21.9 Gastro-esophageal reflux disease without esophagitis; G20.A1 Parkinson's disease without dyskinesia, without mention of fluctuations; F32.A Depression, unspecified; I25.2 Old myocardial infarction; E66.9 Obesity, unspecified; Z68.30 Body mass index [BMI] 30.0-30.9, adult; F17.210 Nicotine dependence, cigarettes, uncomplicated; Z71.6 Tobacco abuse counseling; Z75.8 Other problems related to medical facilities and other health care; Z53.29 Procedure and treatment not carried out because of patient's decision for other reasons; Z79.4 Long term (current) use of insulin; Z79.84 Long term (current) use of oral hypoglycemic drugs; Z86.73 Personal history of transient ischemic attack (TIA), and cerebral infarction without residual deficits
CPT/HCPCS: 96361 ×2; 96365; 96366; 96372; 96375 ×2; 99291; 36415; 93005 ×2; 93306; 93351; 83880; 80053 ×2; 83690; 83735 ×2; 84100; 84484 ×2; 85025 ×2; 85610; 85730; 83036; 71046; G0378 ×3; J1250; J2270; J1644; J3475; J2470